=== PATIENT | male | born 1950 | race Caucasian/White ===

== ENCOUNTER → 2016-07-12 | Outpatient (CLI) | payer OTHER ==
[~2016-07-12] MED LIST: ASPI81TA28 PO; CHOL100010 PO; CHOL100027 PO; DIFL0.0519; ERTA1INJ IV; INSTAFLEX PO; MULT-506 PO; OFLO0.3S OP; ROSU5TAB PO; ZOLP10TA PO
[2016-07-12 12:24] LABS: BASO % 1.2 %; BASO ABS # 0.08 K/uL (0-0.2); COMPLETE YES; EOS % 1.5 %; HEMATOCRIT 48.4 % (42-52); IG% 0.1 %; LYMPH % 32.7 %; LYMPH ABS # 2.18 K/uL (1.2-3.4); MEAN CELL VOLUME 89.1 fL (80-100); MEAN CORPUSCULAR HGB CONC 33.7 g/dl (32-36); MEAN PLATELET VOLUME 11.8 fL (7.4-10.4); MONO % 6.9 %; NEUT % 57.6 %; PLATELET COUNT 246 K/uL (130-400); RED BLOOD COUNT 5.43 M/uL (4.7-6.1); WHITE BLOOD COUNT 6.67 K/uL (4.8-10.8)
[2016-07-12 12:45] LABS: ALT/SGPT 28 U/L (12-78); AST/SGOT 11 U/L (15-37); BLOOD UREA NITROGEN 14 mg/dl (7-18); BUN/CREATININE RATIO 17.8 (10-20); CARBON DIOXIDE 29 mmol/L (21-32); CHLORIDE 104 mmol/L (98-107); CREATININE 0.81 mg/dl (0.60-1.40); GLUCOSE 103 mg/dl (70-99); POTASSIUM 4.4 mmol/L (3.5-5.1); SODIUM 141 mmol/L (136-145)
[2016-07-12 12:56] LABS: ALB/GLOB RATIO 1.1 (0.9-2); ALKALINE PHOSPHATASE 53 U/L (45-117); CHOLESTEROL 177 mg/dl (0-200); CHOLESTEROL/HDL RATIO 3.8; HDL CHOLESTEROL 46 mg/dl; LDL CHOLESTEROL CALCULATED 110 mg/dl; THYROID STIMULATING HORMONE 0.792 uIu/ml (0.300-4.500); TRIGLYCERIDES 105 mg/dl (0-150); VERY LOW DENSITY LIPOPROT CALC 21 mg/dl
[2016-07-12 13:08] LABS: ESTIMATED AVERAGE GLUCOSE 111 mg/dl; HA1C FLAG Normal (Normal)
== END | disposition home or self-care (01) ==
LOC: C.LABBFT 11:05
PROVIDERS: ATTEND Internal Medicine
DX: Z00.00 Encounter for general adult medical examination without abnormal findings (principal); E78.5 Hyperlipidemia, unspecified; M54.5 Low back pain; R53.83 Other fatigue; G62.9 Polyneuropathy, unspecified; R73.01 Impaired fasting glucose

== ENCOUNTER → 2016-11-06 | Outpatient (CLI) | payer OTHER ==
[2016-11-06 13:22] LABS: ALT/SGPT 32 U/L (12-78); AST/SGOT 22 U/L (15-37); BLOOD UREA NITROGEN 16 mg/dl (7-18); BUN/CREATININE RATIO 17.5 (10-20); CALCIUM 9.2 mg/dl (8.5-10.1); CARBON DIOXIDE 29 mmol/L (21-32); CHLORIDE 106 mmol/L (98-107); CREATININE 0.91 mg/dl (0.60-1.40); GLUCOSE 100 mg/dl (70-99); POTASSIUM 4.9 mmol/L (3.5-5.1); SODIUM 141 mmol/L (136-145)
[2016-11-06 13:27] LABS: ALB/GLOB RATIO 1.2 (0.9-2); ALKALINE PHOSPHATASE 53 U/L (45-117); CHOLESTEROL 166 mg/dl (0-200); HDL CHOLESTEROL 41 mg/dl; LDL CHOLESTEROL CALCULATED 109 mg/dl; TRIGLYCERIDES 79 mg/dl (0-150); VERY LOW DENSITY LIPOPROT CALC 16 mg/dl
== END | disposition home or self-care (01) ==
LOC: C.LABBFT 10:02
PROVIDERS: ATTEND Internal Medicine
DX: Z00.00 Encounter for general adult medical examination without abnormal findings (principal); E78.5 Hyperlipidemia, unspecified; Z12.5 Encounter for screening for malignant neoplasm of prostate

== ENCOUNTER → 2016-12-05 | Outpatient (CLI) | payer OTHER | END | disposition home or self-care (01) | LOC: C.LABBFT 12:14 | PROVIDERS: ATTEND Internal Medicine | DX: R97.20 Elevated prostate specific antigen [PSA] (principal) ==

== ENCOUNTER → 2016-12-11 | Outpatient (CLI) | payer OTHER ==
[2016-12-11 12:38] LABS: URINE APPEARANCE CLEAR (CLEAR); URINE BILIRUBIN NEG (NEG); URINE COLOR YELLOW; URINE EPITHELIAL CELL AUTO 0-5 /lpf (0-5); URINE NITRITE NEG (NEG); URINE PH 6.5 (4.5-7.5); URINE SPECIFIC GRAVITY 1.011 (1.000-1.030); UROBILINOGEN NEG (NEG)
[2016-12-11 12:42] LABS: MANUAL MICROSCOPIC REQUIRED? NO; REVIEW REQ? NO
== END ==
LOC: C.LABBFT 08:11
PROVIDERS: ATTEND Internal Medicine
DX: R30.0 Dysuria (principal)

== ENCOUNTER → 2017-02-17 | Outpatient (CLI) | payer OTHER ==
[2017-02-17 20:17] LABS: LYME DISEASE AB IGG NEG (NEG); LYME DISEASE AB IGM NEG (NEG)
== END | disposition home or self-care (01) ==
LOC: C.LABBFT 12:09
PROVIDERS: ATTEND Internal Medicine
DX: T14.8 Other injury of unspecified body region (principal); W57.XXXA Bitten or stung by nonvenomous insect and other nonvenomous arthropods, initial encounter

== ENCOUNTER → 2017-03-17 | Outpatient (CLI) | payer OTHER ==
--- NOTE | 2017-03-28 07:24 | CODING QUERY MEDICAL NECESSITY ---
SUPPORTING DIAGNOSIS NEEDED A supporting diagnosis is required for the test/procedure performed on this patient in order for us to be reimbursed by the patient's insurance. Please provide a supporting diagnosis for the following test/procedure listed below next to the test name along with your signature. *If there is no additional diagnosis for this patient that would support the following test/procedure please document that below next to the test/procedure. Test(s)/Procedure(s) that require a supporting diagnosis: * PSA DIAGNOSIS: Provider Signature: Date: Thank you Dominique [employer] Information Management Once completed, please kindly fax back to [phone] For questions please call [phone]
== END | disposition home or self-care (01) ==
LOC: C.LABBFT 15:31
PROVIDERS: ATTEND Urology
DX: N41.1 Chronic prostatitis (principal)

== ENCOUNTER → 2017-03-19 | Outpatient (CLI) | payer OTHER | END | disposition home or self-care (01) | LOC: C.LABSPEC 17:34 | PROVIDERS: ATTEND Urology | DX: N41.0 Acute prostatitis (principal) ==

== ENCOUNTER 2017-03-20 21:17 | Inpatient (IN) | payer OTHER ==
[~2017-03-20] VITALS: Ht 175.3 cm; Wt 102.8 kg
[~2017-03-20 21:17] MED LIST changes: -ASPI81TA28 PO; -CHOL100027 PO; -ERTA1INJ IV; -INSTAFLEX PO; -OPTIRAY 320 IV PRN; -ROSU5TAB PO; -ZOLP10TA PO
[2017-03-20] MEDS ORDERED: SODIUM CHLORIDE 0.9% 1000ML 1,000 ML IV STA (21:50)
[2017-03-20] MEDS ORDERED: SODIUM CHLORIDE 0.9% 500ML 500 ML IV STA (21:50)
[2017-03-20] MEDS ORDERED: PIPERACILLIN/TAZOBACTAM 4.5 GM/100ML D5W IV STA (22:23)
[2017-03-20] MEDS ORDERED: SODIUM CHLORIDE 0.9% IV STA (22:24)
[2017-03-20] MEDS ORDERED: DAPTOMYCIN IV STA (22:24)
--- NOTE | 2017-03-20 22:25 | EMERGENCY ROOM VISIT NOTE ---
ED Visit Note First contact with patient: 21:34 I have seen and examined this patient with Merlene Chandler and generally agree with the treatment plan as discussed.
[2017-03-20 22:44] LABS: BASO % 0.6 %; BASO ABS # 0.06 K/uL (0-0.2); COMPLETE YES; EOS % 1.8 %; HEMATOCRIT 49.4 % (42-52); IG% 0.1 %; LYMPH % 7.3 %; LYMPH ABS # 0.69 K/uL (1.2-3.4); MEAN CELL VOLUME 88.5 fL (80-100); MEAN CORPUSCULAR HEMOGLOBIN 29.2 pg (25-34); MEAN PLATELET VOLUME 11.6 fL (7.4-10.4); MONO % 7.3 %; NEUT % 82.9 %; PLATELET COUNT 214 K/uL (130-400); RED BLOOD COUNT 5.58 M/uL (4.7-6.1)
[2017-03-20] MEDS ORDERED: ACETAMINOPHEN 500 MG TAB PO STA (22:49)
[2017-03-20 22:54] LABS: INR 0.9 (0.9-1.1); PARTIAL THROMBOPLASTIN RATIO 1.1; PROTHROMBIN TIME (PATIENT) 10.1 SECONDS (9.0-12.0)
[2017-03-20 23:25] LABS: URINE APPEARANCE CLEAR (CLEAR); URINE BILIRUBIN NEG (NEG); URINE COLOR YELLOW; URINE EPITHELIAL CELL AUTO 0-5 /lpf (0-5); URINE NITRITE NEG (NEG); URINE PH 5.5 (4.5-7.5); URINE SPECIFIC GRAVITY 1.027 (1.000-1.030); UROBILINOGEN NEG (NEG); ZZUR CULT IF INDIC CLEAN CATCH NO
[2017-03-20 23:26] LABS: ALB/GLOB RATIO 1.1 (0.9-2); ALKALINE PHOSPHATASE 61 U/L (45-117); ALT/SGPT 33 U/L (12-78); BLOOD UREA NITROGEN 16 mg/dl (7-18); BUN/CREATININE RATIO 17.4 (10-20); CARBON DIOXIDE 23 mmol/L (21-32); CHLORIDE 107 mmol/L (98-107); CREATININE 0.89 mg/dl (0.60-1.40); GLUCOSE 138 mg/dl (70-99)
[2017-03-20 23:27] LABS: MANUAL MICROSCOPIC REQUIRED? NO; REVIEW REQ? NO
[2017-03-21] VITALS (8 sets, daily range): BP systolic 114–145; BP diastolic 68–85; PULSE 74–88; TEMP 36.9–37.9; O2SAT 93–96; Ht 175.3 cm; Wt 102.8 kg
[2017-03-21 00:09] LABS: POTASSIUM 4.2 mmol/L (3.5-5.1); SODIUM 141 mmol/L (136-145)
[2017-03-21 00:30] LABS: AST/SGOT 17 U/L (15-37); CKMB/CK RATIO 0.8 (0-3.0)
[2017-03-21] MEDS ORDERED: ALUMINUM/MAGNESIUM/SIMETH (MAALOX MAX) 30 ML UDC PO PRN (00:45)
[2017-03-21] MEDS ORDERED: MAGNESIUM HYDROXIDE SUSP 30 ML UDC PO PRN (00:45)
[2017-03-21] MEDS ORDERED: ZOLPIDEM TARTRATE 5 MG TAB PO PRN (00:45)
[2017-03-21] MEDS ORDERED: ACETAMINOPHEN 325 MG TAB PO PRN (00:45)
[2017-03-21] MEDS ORDERED: ONDANSETRON INJ 2 MG/ML 2 ML VIAL IV PRN (00:45)
[2017-03-21] MEDS ORDERED: POLYETHYLENE (MIRALAX) 17 GM PACK PO PRN (00:45)
--- NOTE | 2017-03-21 00:56 | EMERGENCY ROOM VISIT NOTE ---
History First contact with patient: 21:34 Chief Complaint: ALLERGIC REACTION Stated Complaint: SHAKING,SOB,HIGH PULSE RATE,ALLERGIC REACTION Nursing Triage Summary: pt ambulatory to triage, states "I was in the tub i started shaking and feeling like i was going to throw up. I had a hard time getting out of the tub, i went into the bathroom and had a fit I felt like I couldn't breathe." pt reports he is currently taking for prostitis and had CT with dye 8am this morning. trimethoprim 100mg History of Present Illness The patient is a 67 year old male who presents to the Emergency Room with complaints of ongoing problems with this prostatitis for the past several months and has been on multiple antibiotics that have been on and off in duration secondary to side effects. Patient follows with Dr. Frias. Patient had a CT scan this morning and has been on Trimethoprim 100mg BID since yesterday. Patient has been on doxycycline in the past and had allergic reaction to Cipro with tendinitis. Patient had multiple rectal exams by Dr. Frias and states they have removed copious amounts of pus and fluid from his prostate. Patient still complain of ongoing rectal discomfort. Patient states around 7 PM tonight he had an episode of racing heart, right ears, chest pain, shortness of breath and then took a shower and then was freezing this lasted for quite some time. Patient states currently now he just feels feverish. Patient denies current chest pain, dyspnea, abdominal pain, neck stiffness. She states he's had bad reactions to antibiotics in the past with resistance. Patient complains of intermittent fevers for the past few months also. Review of Systems See HPI for pertinent positives & negatives. A total of 10 systems reviewed and were otherwise negative. Past Medical/Surgical History Medical Problems: (1) Prostatitis Hyperlipidemia Social History Smoking Status: Never Smoker Drug Use: none Marital Status: Housing Status: lives with family Occupation Status: employed Current/Historical Medications Scheduled Aspirin (Aspirin Ec), 81 MG PO QPM Cholecalciferol (Vitamin D), 1,000 INTER.UNIT PO QAM Multivitamin (Multivitamin), 1 TAB PO QAM Ofloxacin (Oph) (Ocuflox Oph Soln), 1-2 DROPS OP BID Rosuvastatin Calcium (Crestor), 5 MG PO HS Physical Exam Vital Signs Date Time Temp Pulse Resp B/P (MAP) Pulse Ox O2 Delivery O2 Flow Rate FiO2 03/20/17 23:59 85 18 191/103 96 Room Air 03/20/17 22:59 87 20 152/78 95 Room Air 03/20/17 22:08 94 Room Air 03/20/17 21:45 95 Room Air 03/20/17 21:27 37.6 106 18 178/83 95 Room Air Physical Exam VITALS: Vitals are noted on the nurse's note and reviewed by myself. Vital signs low-grade fever. GENERAL: White male, in no acute distress, nondiaphoretic, well-developed well- nourished. SKIN: The skin was without rashes, erythema, edema, or bruising. There is no tenting of the skin. Capillary reflex less than 2 seconds. HEAD: Normocephalic atraumatic. EARS: External auditory canals clear, tympanic membranes pearly henson without erythema or effusion bilaterally. EYES: Pupils equal round and reactive to light and accommodation. Conjunctivae without injection, sclerae without icterus. Extraocular movements intact. NOSE: Patent, turbinates without inflammation or discharge. MOUTH: Mucous membranes moist. Pharynx without erythema or exudate. Uvula midline. Airway patent. Tongue does not deviate. NECK: Supple without nuchal rigidity. No lymphadenopathy. No thyromegaly. Cervical spine is nontender. No JVD. HEART: Regular rate and rhythm LUNGS: Clear to auscultation bilaterally without wheezes, rales or rhonchi. No dullness to percussion. No retractions or accessory muscle use. ABDOMEN: Positive bowel sounds x 4. Normal tympanic percussion. Soft, nontender, without masses or organomegaly. Stephens sign negative. No guarding or rebound tenderness. No CVA tenderness MUSCULOSKELETAL: No muscle atrophy, erythema, or edema noted. NEURO: Patient was alert and oriented to person place and time. Normal sensation to light and sharp touch. No focal neurological deficits. Medical Decision & Procedures Laboratory Results 03/20/17 22:11 Red Blood Count 5.58, Mean Corpuscular Volume 88.5, Mean Corpuscular Hemoglobin 29.2, Mean Corpuscular Hemoglobin Concent 33.0, Mean Platelet Volume 11.6, Neutrophils (%) (Auto) 82.9, Lymphocytes (%) (Auto) 7.3, Monocytes (%) (Auto) 7.3, Eosinophils (%) (Auto) 1.8, Basophils (%) (Auto) 0.6, Neutrophils # (Auto) 7.88, Lymphocytes # (Auto) 0.69, Monocytes # (Auto) 0.69, Eosinophils # (Auto) 0.17, Basophils # (Auto) 0.06 03/20/17 22:11 Test 03/20/17 22:11 03/20/17 22:28 03/20/17 23:00 White Blood Count 9.50 K/uL (4.8-10.8) Red Blood Count 5.58 M/uL (4.7-6.1) Hemoglobin 16.3 g/dL (14.0-18.0) Hematocrit 49.4 % (42-52) Mean Corpuscular Volume 88.5 fL (80-100) Mean Corpuscular Hemoglobin 29.2 pg (25-34) Mean Corpuscular Hemoglobin Concent 33.0 g/dl (32-36) Platelet Count 214 K/uL (130-400) Mean Platelet Volume 11.6 fL (7.4-10.4) Neutrophils (%) (Auto) 82.9 % Lymphocytes (%) (Auto) 7.3 % Monocytes (%) (Auto) 7.3 % Eosinophils (%) (Auto) 1.8 % Basophils (%) (Auto) 0.6 % Neutrophils # (Auto) 7.88 K/uL (1.4-6.5) Lymphocytes # (Auto) 0.69 K/uL (1.2-3.4) Monocytes # (Auto) 0.69 K/uL (0.11-0.59) Eosinophils # (Auto) 0.17 K/uL (0-0.5) Basophils # (Auto) 0.06 K/uL (0-0.2) RDW Standard Deviation 42.4 fL (36.4-46.3) RDW Coefficient of Variation 13.0 % (11.5-14.5) Immature Granulocyte % (Auto) 0.1 % Immature Granulocyte # (Auto) 0.01 K/uL (0.00-0.02) Prothrombin Time 10.1 SECONDS (9.0-12.0) Prothromb Time International Ratio 0.9 (0.9-1.1) Activated Partial Thromboplast Time 28.6 SECONDS (21.0-31.0) Partial Thromboplastin Ratio 1.1 Anion Gap 9.0 mmol/L (3-11) Est Creatinine Clear Calc Drug Dose 97.8 ml/min Estimated GFR () 104.0 Estimated GFR (Non- 89.7 BUN/Creatinine Ratio 17.4 (10-20) Calcium Level 9.0 mg/dl (8.5-10.1) Total Bilirubin 0.3 mg/dl (0.2-1) Aspartate Amino Transf (AST/SGOT) 17 U/L (15-37) Alanine Aminotransferase (ALT/SGPT) 33 U/L (12-78) Alkaline Phosphatase 61 U/L (45-117) Total Creatine Kinase 113 U/L (39-308) Creatine Kinase MB 0.9 ng/ml (0.5-3.6) Creatine Kinase MB Ratio 0.8 (0-3.0) Troponin I < 0.015 ng/ml (0-0.045) Total Protein 7.2 gm/dl (6.4-8.2) Albumin 3.7 gm/dl (3.4-5.0) Globulin 3.5 gm/dl (2.5-4.0) Albumin/Globulin Ratio 1.1 (0.9-2) Procalcitonin 0.06 ng/ml (0-0.5) Chemistry Specimen Hemolysis Bedside Lactic Acid Venous 1.70 mmol/L (0.90-1.70) Urine Color YELLOW Urine Appearance CLEAR (CLEAR) Urine pH 5.5 (4.5-7.5) Urine Specific [place] 1.027 (1.000-1.030) Urine Protein NEG (NEG) Urine Glucose (UA) NEG (NEG) Urine Ketones NEG (NEG) Urine Occult Blood 1+ (NEG) Urine Nitrite NEG (NEG) Urine Bilirubin NEG (NEG) Urine Urobilinogen NEG (NEG) Urine Leukocyte Esterase NEG (NEG) Urine WBC (Auto) 1-5 /hpf (0-5) Urine RBC (Auto) 0-4 /hpf (0-4) Urine Hyaline Casts (Auto) 0 /lpf (0-5) Urine Epithelial Cells (Auto) 0-5 /lpf (0-5) Urine Bacteria (Auto) NEG (NEG) Medications Administered Medications (Trade) Dose Ordered Sig/Mary Lou Route Start Time Stop Time Status Last Admin Dose Admin Sodium Chloride 500 ml @ 999 mls/hr Q31M STAT IV 03/20/17 21:50 03/20/17 22:20 DC 03/20/17 22:13 999 MLS/HR Sodium Chloride 1,000 ml @ 125 mls/hr Q8H STAT IV 03/20/17 21:50 03/21/17 05:49 03/20/17 22:59 125 MLS/HR Piperacillin Sod/ Tazobactam Sod (Zosyn Iv) 4.5 gm NOW STAT IV 03/20/17 22:23 03/20/17 22:24 DC 03/20/17 22:54 4.5 GM Daptomycin 620 mg/ Sodium Chloride 62.4 ml @ 100 mls/hr NOW STAT IV 03/20/17 22:24 03/20/17 23:01 DC 03/20/17 23:21 100 MLS/HR Acetaminophen (Tylenol Tab) 1,000 mg NOW STAT PO 03/20/17 22:49 03/20/17 22:50 DC 03/20/17 22:54 1,000 MG ED Course Prior records/ancillary studies reviewed. Triage Nursing notes reviewed. Additional history obtained from family The patient's history was concerning for possible side effects antibiotic versus ongoing prostatitis Differential diagnosis: Etiologies such as prostatitis, sepsis, UTI, pneumonia, metabolic, electrolyte abnormalities, cardiac sources, intracerebral event, toxicologic, neurologic, as well as others were entertained. Physical examination: As above. Pertinent findings were ongoing prostate issues. Vital signs reviewed and revealed low grade fever ER treatment provided: IV fluid resuscitation with Normal saline solution, 500 mL bolus. IV fluid hydration with Normal saline solution at 125 mL/hr. Blood and urine cultures Antibiotics: Zosyn, daptomycin No recent prostate cultures were in the chart review. On reassessment the patient vital signs improved. Diagnostics interpretation by me: ECG: Normal sinus, normal intervals, Q wave in lead 2 and 3, no acute ST-T wave changes, rate of 97. Impression normal sinus rhythm with Q waves in inferior leads interpreted by myself The labs revealed no leukocytosis on CBC. Chemistry panel revealed no worrisome electrolyte abnormality LFTs revealed. Cardiac enzymes were negative Serum Lactate measurement was 1.7. Blood and urine cultures are pending. Imaging studies: Chest xray revealed with no acute consolidation, pneumothorax or free air per my interpretation CT OF THE PELVIS WITH CONTRAST CLINICAL HISTORY: Prostatitis. Evaluate for prostate abscess. COMPARISON STUDY: No previous studies for comparison. TECHNIQUE: Axial images of the pelvis were obtained following intravenous injection of 93 cc of Optiray 320 IV. Sagittal and coronal reconstructions were viewed. FINDINGS: The prostate is moderately enlarged. The prostate is heterogeneous. However, there is no rim-enhancing prostatic fluid collection to suggest an abscess. There is left colon diverticulosis without evidence for acute diverticulitis within visualized portions of the colon. A 2.4 cm cyst within the lower pole of the right kidney is incidentally noted. There is a fat-containing right inguinal hernia. There are no suspicious osseous lesions. There is no pelvic lymphadenopathy. IMPRESSION: 1. Moderately enlarged heterogeneous prostate gland with no evidence for prostate abscess. 2. Colonic diverticulosis. 3. Fat-containing right inguinal hernia. Electronically signed by: Jordi Goldberg M.D. Consultation: A consultation was placed with Dr Guanako pina. The case was discussed and diagnostics were reviewed. The patient was evaluated in the ER for further treatment. Exam and history seem consistent with prostatitis. Patient is febrile and has been on chronic antibiotics. He was started on broad-spectrum antibiotics. Medicine was consulted. He had no leukocytosis. Negative lactic acid. Blood cultures are pending. Medical Decision as above Medication Reconcilliation Current Medication List: was personally reviewed by me Blood Pressure Screening Patient's blood pressure: Elevated blood pressure Blood pressure disposition: Elevated BP felt to be situational Impression Primary Impression: Prostatitis Additional Impression: Failure of outpatient treatment Departure Information Dispostion Being Evaluated By Hospitalist Condition FAIR Referrals Tammy Goldberg M.D. (PCP) Patient Instructions My [facility] Problem Qualifiers Primary Impression: Prostatitis Prostatitis type: unspecified Qualified Codes: N41.9 - Inflammatory disease of prostate, unspecified
[2017-03-21] MEDS ORDERED: HydrALAZINE HCL 20 MG/ML VIAL IV. PRN (01:00)
[2017-03-21] MEDS ORDERED: SODIUM CHLORIDE 0.9% 1000ML 1,000 ML IV ONE (01:00)
--- NOTE | 2017-03-21 01:20 | History and Physical ---
History & Physical Date & Time of Service: Mar 21, 2017 at 00:58 Chief Complaint: Shaking,Sob,High Pulse Rate,Allergic Reaction Primary Care Physician: Tammy Goldberg M.D. History of Present Illness Source: patient 67 y/o M Hx HPL, recurrent prostatitis. Pt had been treated with a 3 month course of Doxy without complete resolution and was prescribed Bactrim 3 days prior. He had taken approximately 3 doses. This evening he developed rigors, fever and tachycardia in addition to nausea and vomiting. He tried to ride this out with a hot shower but was shaking violently afterward. He also claims that during this episode his HR read as 145 on his Iwatch. On arrival to the hospital he exhibited a low-grade fever. The pt initially thought that his symptoms were due to a reaction to Bactrim rather than his chronic infection. He describes a similar reaction when receiving Bactrim several years ago. The pt had an abdominal CT earlier in the day and received contrast. The results were unremarkable and he denies any immediate reactions to the contrast. It is noted that his blood pressure is markedly elevated at the time of admission - this despite being afebrile and seemingly pain-free. He denies a history of HTN. Past Medical/Surgical History 1) HPL 2) Recurrent prostatitis Family History Father at age 38 from [place] Mother in 70s due to COPD Social History Does not smoke or drink - avid hiker - owns a [employer] Smoking Status: Never Smoker Drug Use: none Marital Status: Occupational Status: employed Immunizations History of Influenza Vaccine: Yes Influenza Vaccine Date: Mar 16, 2010 History of Tetanus Vaccine?: Yes Tetanus Immunization Date: Mar 16, 2010 History of Pneumococcal: Yes Pneumococcal Date: May 24, 2005 History of Hepatitis B Vaccine: Unknown Multi-Drug Resistant Organisms History of MDRO: No Allergies Coded Allergies: Sulfa Drugs (Verified Allergy, Unknown, GI UPSET, 03/20/17) Trimethoprim (Unverified Allergy, Unknown, SHAKES,RAPID HEART RATE, VOMITING, 03/20/17) Home Medications Scheduled Aspirin (Aspirin Ec), 81 MG PO QPM Cholecalciferol (Vitamin D), 1,000 INTER.UNIT PO QAM Multivitamin (Multivitamin), 1 TAB PO QAM Ofloxacin (Oph) (Ocuflox Oph Soln), 1-2 DROPS OP BID Rosuvastatin Calcium (Crestor), 5 MG PO HS Review of Systems Constitutional: No fever, No chills Eyes: No worsening of vision ENT: No hearing loss, No nasal symptoms Respiratory: No cough, No wheezing Cardiovascular: No chest pain, No orthopnea, No PND Abdomen: + nausea, + vomiting, No pain Musculoskeletal: No joint pain, No muscle pain Genitourinary - Male: No hematuria, No dysuria, No urinary frequency Neurologic: No memory loss, No paralysis, No weakness Psychiatric: No depression symptoms Endocrine: No fatigue Hematologic / Lymphatic: No abnormal bleeding/bruising Integumentary: No rash Allergic / Immunologic: No environmental allergies Physical Exam Vital Signs Date Time Temp Pulse Resp B/P (MAP) Pulse Ox O2 Delivery O2 Flow Rate FiO2 03/20/17 23:59 85 18 191/103 96 Room Air 03/20/17 22:59 87 20 152/78 95 Room Air 03/20/17 22:08 94 Room Air 03/20/17 21:45 95 Room Air 03/20/17 21:27 37.6 106 18 178/83 95 Room Air General Appearance: WD/WN, no apparent distress Head: normocephalic ENT: normal ENT inspection, pharynx normal Neck: supple, no JVD Respiratory/Chest: chest non-tender, lungs clear, normal breath sounds Cardiovascular: regular rate, rhythm, no edema, no gallop Abdomen/GI: normal bowel sounds, non tender, soft Back: normal inspection, no CVA tenderness, no muscle spasm, normal range of motion Extremities/Musculoskelatal: normal inspection, no calf tenderness, normal capillary refill Neurologic/Psych: raw stock drier tender II-XII nml as tested, no motor/sensory deficits, alert Skin: normal color, warm/dry, no rash Diagnostics Laboratory Results Results Past 24 Hours Test 03/20/17 22:11 03/20/17 22:28 03/20/17 23:00 Range/Units White Blood Count 9.50 4.8-10.8 K/uL Red Blood Count 5.58 4.7-6.1 M/uL Hemoglobin 16.3 14.0-18.0 g/dL Hematocrit 49.4 42-52 % Mean Corpuscular Volume 88.5 80-100 fL Mean Corpuscular Hemoglobin 29.2 25-34 pg Mean Corpuscular Hemoglobin Concent 33.0 32-36 g/dl Platelet Count 214 130-400 K/uL Mean Platelet Volume 11.6 7.4-10.4 fL Neutrophils (%) (Auto) 82.9 % Lymphocytes (%) (Auto) 7.3 % Monocytes (%) (Auto) 7.3 % Eosinophils (%) (Auto) 1.8 % Basophils (%) (Auto) 0.6 % Neutrophils # (Auto) 7.88 1.4-6.5 K/uL Lymphocytes # (Auto) 0.69 1.2-3.4 K/uL Monocytes # (Auto) 0.69 0.11-0.59 K/uL Eosinophils # (Auto) 0.17 0-0.5 K/uL Basophils # (Auto) 0.06 0-0.2 K/uL RDW Standard Deviation 42.4 36.4-46.3 fL RDW Coefficient of Variation 13.0 11.5-14.5 % Immature Granulocyte % (Auto) 0.1 % Immature Granulocyte # (Auto) 0.01 0.00-0.02 K/uL Prothrombin Time 10.1 9.0-12.0 SECONDS Prothromb Time International Ratio 0.9 0.9-1.1 Activated Partial Thromboplast Time 28.6 21.0-31.0 SECONDS Partial Thromboplastin Ratio 1.1 Sodium Level 141 136-145 mmol/L Potassium Level 4.2 3.5-5.1 mmol/L Chloride Level 107 98-107 mmol/L Carbon Dioxide Level 23 21-32 mmol/L Anion Gap 9.0 3-11 mmol/L Blood Urea Nitrogen 16 7-18 mg/dl Creatinine 0.89 0.60-1.40 mg/dl Est Creatinine Clear Calc Drug Dose 97.8 ml/min Estimated GFR () 104.0 Estimated GFR (Non- 89.7 BUN/Creatinine Ratio 17.4 10-20 Random Glucose 138 70-99 mg/dl Calcium Level 9.0 8.5-10.1 mg/dl Total Bilirubin 0.3 0.2-1 mg/dl Aspartate Amino Transf (AST/SGOT) 17 15-37 U/L Alanine Aminotransferase (ALT/SGPT) 33 12-78 U/L Alkaline Phosphatase 61 45-117 U/L Total Creatine Kinase 113 39-308 U/L Creatine Kinase MB 0.9 0.5-3.6 ng/ml Creatine Kinase MB Ratio 0.8 0-3.0 Troponin I < 0.015 0-0.045 ng/ml Total Protein 7.2 6.4-8.2 gm/dl Albumin 3.7 3.4-5.0 gm/dl Globulin 3.5 2.5-4.0 gm/dl Albumin/Globulin Ratio 1.1 0.9-2 Procalcitonin 0.06 0-0.5 ng/ml Chemistry Specimen Hemolysis Bedside Lactic Acid Venous 1.70 0.90-1.70 mmol/L Urine Color YELLOW Urine Appearance CLEAR CLEAR Urine pH 5.5 4.5-7.5 Urine Specific [place] 1.027 1.000-1.030 Urine Protein NEG NEG Urine Glucose (UA) NEG NEG Urine Ketones NEG NEG Urine Occult Blood 1+ NEG Urine Nitrite NEG NEG Urine Bilirubin NEG NEG Urine Urobilinogen NEG NEG Urine Leukocyte Esterase NEG NEG Urine WBC (Auto) 1-5 0-5 /hpf Urine RBC (Auto) 0-4 0-4 /hpf Urine Hyaline Casts (Auto) 0 0-5 /lpf Urine Epithelial Cells (Auto) 0-5 0-5 /lpf Urine Bacteria (Auto) NEG NEG Microbiology Results 03/20/17 Blood Culture, Received Pending 03/20/17 Blood Culture, Received Pending Impression Assessment and Plan 67 y/o M Hx HPL, recurrent prostatitis. Pt had been treated with a 3 month course of Doxy without complete resolution and was prescribed Bactrim 3 days prior. He had taken approximately 3 doses. This evening he developed rigors, fever and tachycardia in addition to nausea and vomiting. He tried to ride this out with a hot shower but was shaking violently afterward. He also claims that during this episode his HR read as 145 on his Iwatch. On arrival to the hospital he exhibited a low-grade fever. The pt initially thought that his symptoms were due to a reaction to Bactrim rather than his chronic infection. He describes a similar reaction when receiving Bactrim several years ago. The pt had an abdominal CT earlier in the day and received contrast. The results were unremarkable and he denies any immediate reactions to the contrast. It is noted that his blood pressure is markedly elevated at the time of admission - this despite being afebrile and seemingly pain-free. He denies a history of HTN. 1) Fever, rigors, N/V - this would more likely be due to infection - ongoing prostatitis - rather than a somewhat delayed reaction to Bactrim. It does however, per the pt, mimic a reaction he had had to Bactrim years earlier. He does not currrently have a rash, wheezing or evidence of allergic reaction. His nausea and vomiting have resolved. The pt will be placed on Zosyn pending culture results. We have consulted his Urologist. 2) HTN - denies a history of - will provide PRN Hydralazine -we will trend his BP and would consider outpt treatment if it remains persistently elevated. 3) HPL - cont Crestor Full code - Heparin prophylaxis - total time for this admit including review of labs, meds, records - discussion with pt and ER attending - 35 min Level of Care Med/Surg Resuscitation Status FULL RESUSCITATION VTE Prophylaxis VTE Risk Assessment Done? Y/N: Yes Risk Level: Low Given or contraindicated: Unfractionated heparin SQ
[2017-03-21] MEDS ORDERED: PIPERACILL/TAZOBAC CONSULT ACTIVE PRN (06:00)
[2017-03-21] MEDS ORDERED: PIPERACILL/TAZOBAC IV 3.375 GM in DEXTROSE 5% 100ML 100 ML IV SCH (06:00)
[2017-03-21] MEDS: HEPARIN SOD 5000 UNIT/0.5 ML CARP SQ SCH ×3 (06:26→20:56)
--- NOTE | 2017-03-21 06:51 | DIAGNOSTIC IMAGING REPORT ---
CHEST ONE VIEW PORTABLE CLINICAL HISTORY: Sepsis dyspnea COMPARISON STUDY: 05/24/2010 FINDINGS: The bones soft tissues and hemidiaphragms are normal. The cardiomediastinal silhouette is normal. The lungs are clear. The pulmonary vasculature is normal. IMPRESSION: Negative chest. The above report was generated using voice recognition software. It may contain grammatical, syntax or spelling errors. Electronically signed by: Frank Nicholas M.D. 03/21/2017 6:50 AM Dictated Date/Time: 03/21/2017 6:50 AM
[2017-03-21] MEDS: OFLOXACIN 0.3% OP SOLN 5 ML BTL OP SCH ×2 (09:00→20:54)
--- NOTE | 2017-03-21 10:00 | Urology Consultation ---
History General Date of Service: Mar 21, 2017. Primary Care Physician: Tammy Goldberg M.D. Pt seen a urologist before?: Yes (Dr. Frias) If yes, why?: Prostatitis History of Present Illness 67 year old male well known to our service. He has been followed by Dr. Frias for his prostatitis. Discussed case with Dr. Frias. He has been treated and failed treatment with courses of doxycycline and Ciprofloxacin. Prostate secretions evaluated by Dr. Frias showed TNTC WBCs indicating infection. CT scan was done to rule out prostate abscess- did not reveal any worrisome findings. He presented to the ER with complaints of fever, chills, and rigors. Pt stated he felt very sick. Stated that he had this reaction to sulfa drug many years ago. He was only on trimethoprim. Not Bactrim as previously stated. Upon admission did note low grade fever, tachycardia, and hypertensive. Pt is now afebrile with VSS. Had urine culture 2 days ago that shows no growth. Blood cultures are pending. Imaging Imaging: CT Laboratory Current Inpatient Medications Medications (Trade) Dose Ordered Sig/Mary Lou Route Start Time Stop Time Status Last Admin Dose Admin Piperacillin Sod/ Tazobactam Sod 3.375 gm/Dextrose 115 ml @ 28.75 mls/ hr Q8H IV 03/21/17 06:00 03/31/17 05:59 03/21/17 06:15 28.75 MLS/HR Heparin Sodium (Porcine) (Heparin Sq 5000 Unit/0.5ml) 5,000 unit Q8H SQ 03/21/17 06:00 04/20/17 05:59 03/21/17 06:26 5,000 UNIT Acetaminophen (Tylenol Tab) 650 mg Q4H PRN PO 03/21/17 00:45 04/20/17 00:44 Al Hydrox/Mg Hydrox/Simethicone (Maalox Max Susp) 15 ml Q4H PRN PO 03/21/17 00:45 04/20/17 00:44 Magnesium Hydroxide (Milk Of Magnesia Susp) 30 ml Q6H PRN PO 03/21/17 00:45 04/20/17 00:44 Polyethylene (Miralax Powder Packet) 17 gm DAILY PRN PO 03/21/17 00:45 04/20/17 00:44 Zolpidem Tartrate (Ambien Tab) 5 mg HSZ PRN PO 03/21/17 00:45 04/20/17 00:44 Ondansetron HCl (Zofran Inj) 4 mg Q6H PRN IV 03/21/17 00:45 04/20/17 00:44 Hydralazine HCl (HydrALAZINE INJ) 5 mg Q6H PRN IV. 03/21/17 01:00 04/20/17 00:59 Aspirin (Ecotrin Tab) 81 mg QPM PO 03/21/17 21:00 04/20/17 20:59 Ofloxacin (Ocuflox 0.3% Oph Soln) 2 drops BID OP 03/21/17 09:00 03/31/17 08:59 Rosuvastatin Calcium (Crestor Tab) 5 mg HS PO 03/21/17 21:00 04/20/17 20:59 Piperacillin Sod/ Tazobactam Sod (Consult) 1 ea UD PRN N/A 03/21/17 06:00 04/20/17 05:59 Last 24 Hours Test 03/20/17 22:11 03/20/17 22:28 03/20/17 23:00 White Blood Count 9.50 K/uL Red Blood Count 5.58 M/uL Hemoglobin 16.3 g/dL Hematocrit 49.4 % Mean Corpuscular Volume 88.5 fL Mean Corpuscular Hemoglobin 29.2 pg Mean Corpuscular Hemoglobin Concent 33.0 g/dl Platelet Count 214 K/uL Mean Platelet Volume 11.6 fL Neutrophils (%) (Auto) 82.9 % Lymphocytes (%) (Auto) 7.3 % Monocytes (%) (Auto) 7.3 % Eosinophils (%) (Auto) 1.8 % Basophils (%) (Auto) 0.6 % Neutrophils # (Auto) 7.88 K/uL Lymphocytes # (Auto) 0.69 K/uL Monocytes # (Auto) 0.69 K/uL Eosinophils # (Auto) 0.17 K/uL Basophils # (Auto) 0.06 K/uL RDW Standard Deviation 42.4 fL RDW Coefficient of Variation 13.0 % Immature Granulocyte % (Auto) 0.1 % Immature Granulocyte # (Auto) 0.01 K/uL Prothrombin Time 10.1 SECONDS Prothromb Time International Ratio 0.9 Activated Partial Thromboplast Time 28.6 SECONDS Partial Thromboplastin Ratio 1.1 Sodium Level 141 mmol/L Potassium Level 4.2 mmol/L Chloride Level 107 mmol/L Carbon Dioxide Level 23 mmol/L Anion Gap 9.0 mmol/L Blood Urea Nitrogen 16 mg/dl Creatinine 0.89 mg/dl Est Creatinine Clear Calc Drug Dose 97.8 ml/min Estimated GFR () 104.0 Estimated GFR (Non- 89.7 BUN/Creatinine Ratio 17.4 Random Glucose 138 mg/dl Calcium Level 9.0 mg/dl Total Bilirubin 0.3 mg/dl Aspartate Amino Transf (AST/SGOT) 17 U/L Alanine Aminotransferase (ALT/SGPT) 33 U/L Alkaline Phosphatase 61 U/L Total Creatine Kinase 113 U/L Creatine Kinase MB 0.9 ng/ml Creatine Kinase MB Ratio 0.8 Troponin I < 0.015 ng/ml Total Protein 7.2 gm/dl Albumin 3.7 gm/dl Globulin 3.5 gm/dl Albumin/Globulin Ratio 1.1 Procalcitonin 0.06 ng/ml Chemistry Specimen Hemolysis Bedside Lactic Acid Venous 1.70 mmol/L Urine Color YELLOW Urine Appearance CLEAR Urine pH 5.5 Urine Specific [place] 1.027 Urine Protein NEG Urine Glucose (UA) NEG Urine Ketones NEG Urine Occult Blood 1+ Urine Nitrite NEG Urine Bilirubin NEG Urine Urobilinogen NEG Urine Leukocyte Esterase NEG Urine WBC (Auto) 1-5 /hpf Urine RBC (Auto) 0-4 /hpf Urine Hyaline Casts (Auto) 0 /lpf Urine Epithelial Cells (Auto) 0-5 /lpf Urine Bacteria (Auto) NEG Labs were reviewed and are within normal limits unless listed below. Labs are available in the chart and at [facility] Problem List Medical Problems: (1) Failure of outpatient treatment Status: Acute Past History other (hyperlipidemia) Past Surgical History: no surgical history Social History Hx Tobacco Use In Past Year?: No Marital status: Occupation status: employed Immunizations History of Influenza Vaccine: Yes Influenza Vaccine Date: Mar 16, 2010 History of Tetanus Vaccine?: Yes Tetanus Immunization Date: Mar 16, 2010 History of Pneumococcal: Yes Pneumococcal Date: May 24, 2005 History of Hepatitis B Vaccine: Unknown History of MDRO No Allergies Coded Allergies: Sulfa Drugs (Verified Allergy, Unknown, GI UPSET, 03/20/17) Trimethoprim (Unverified Allergy, Unknown, SHAKES,RAPID HEART RATE, VOMITING, 03/20/17) Medications Home Medications: Home Meds and Scripts Medications Dose Route/Sig Max Daily Dose Days Date Category Aspirin Ec (Aspirin) 81 Mg Tab 81 Mg PO QPM 03/20/17 Reported Ocuflox Oph Soln (Ofloxacin (Oph)) 0.3 % Jose 1-2 Drops OP BID 7 01/10/16 Reported Vitamin D (Cholecalciferol) 1,000 Inter.unit Tab 1,000 Inter.unit PO QAM 12/28/15 Reported Multivitamin (Multivitamins) Tab 1 Tab PO QAM 12/28/15 Reported Crestor (Rosuvastatin Calcium) 5 Mg Tab 5 Mg PO HS 12/28/15 Reported Inpatient Medications: Current Inpatient Medications Medications (Trade) Dose Ordered Sig/Mary Lou Route Start Time Stop Time Status Last Admin Dose Admin Piperacillin Sod/ Tazobactam Sod 3.375 gm/Dextrose 115 ml @ 28.75 mls/ hr Q8H IV 03/21/17 06:00 03/31/17 05:59 03/21/17 06:15 28.75 MLS/HR Heparin Sodium (Porcine) (Heparin Sq 5000 Unit/0.5ml) 5,000 unit Q8H SQ 03/21/17 06:00 04/20/17 05:59 03/21/17 06:26 5,000 UNIT Acetaminophen (Tylenol Tab) 650 mg Q4H PRN PO 03/21/17 00:45 04/20/17 00:44 Al Hydrox/Mg Hydrox/Simethicone (Maalox Max Susp) 15 ml Q4H PRN PO 03/21/17 00:45 04/20/17 00:44 Magnesium Hydroxide (Milk Of Magnesia Susp) 30 ml Q6H PRN PO 03/21/17 00:45 04/20/17 00:44 Polyethylene (Miralax Powder Packet) 17 gm DAILY PRN PO 03/21/17 00:45 04/20/17 00:44 Zolpidem Tartrate (Ambien Tab) 5 mg HSZ PRN PO 03/21/17 00:45 04/20/17 00:44 Ondansetron HCl (Zofran Inj) 4 mg Q6H PRN IV 03/21/17 00:45 04/20/17 00:44 Hydralazine HCl (HydrALAZINE INJ) 5 mg Q6H PRN IV. 03/21/17 01:00 04/20/17 00:59 Aspirin (Ecotrin Tab) 81 mg QPM PO 03/21/17 21:00 04/20/17 20:59 Ofloxacin (Ocuflox 0.3% Oph Soln) 2 drops BID OP 03/21/17 09:00 03/31/17 08:59 Rosuvastatin Calcium (Crestor Tab) 5 mg HS PO 03/21/17 21:00 04/20/17 20:59 Piperacillin Sod/ Tazobactam Sod (Consult) 1 ea UD PRN N/A 03/21/17 06:00 04/20/17 05:59 Review of Systems Review of Systems Constitutional: + chills Eyes: No blurred vision Neurological: No dizzy Endocrine: + too hot, + too cold Gastrointestinal: + abdominal pain, + nausea Cardiovascular: No chest pain Respiratory: No shortness of breath Skin: No rash Blood / Lymphatic: No bleed easily Ears / Nose / Throat: No hearing loss Psychologic / Mental: No nervous Male : + see HPI Physical Exam Vital Signs: Vital Signs Past 12 Hours Date Time Temp Pulse Resp B/P (MAP) Pulse Ox O2 Delivery O2 Flow Rate FiO2 03/21/17 07:45 37.3 84 20 133/75 (94) 95 Room Air 03/21/17 01:34 37.1 81 14 114/69 (84) 94 Room Air 03/21/17 01:30 37.1 81 14 114/69 94 Room Air 03/21/17 01:30 Room Air 03/21/17 01:20 37.2 83 17 137/76 (96) 93 Room Air 03/21/17 01:08 37.1 80 18 164/93 95 03/20/17 23:59 85 18 191/103 96 Room Air 03/20/17 22:59 87 20 152/78 95 Room Air 03/20/17 22:08 94 Room Air 03/20/17 21:45 95 Room Air Physical Exam: General Appearance: WD/WN, no apparent distress ENT: hearing grossly normal Neck: no JVD Gastrointestinal: Abdomen: normal abdomen Extremities: normal inspection Neurologic/Psychiatric: alert, normal mood/affect, oriented x 3 Skin: normal color, warm/dry, no rash Assessment & Plan Assessment & Plan Prostatitis It is unclear if his current symptoms are due to reaction to trimethoprim. He has failed multiple antibiotic courses for prostatitis. Clinically with symptoms suggests a diagnosis of prostatitis. Prostatic abscess was ruled out on CT. Will consult infectious disease - rule out other source of infection, ? antibiotic reaction and possible alternative course of antibiotic if felt necessary. (Reviewed case with Dr. Lawson) Appreciate their input. Thanks for the consult. Will continue to follow along. Pt seen and case discussed with Chantel Urena . I agree with above plan and assessment
--- NOTE | 2017-03-21 10:21 | Hospitalist Progress Note ---
Hospitalist Progress Note Date of Service Mar 21, 2017. (Tiara Brumfield ., ALANA) Subjective Pt evaluation today including: conversation w/ patient, conversation w/ family ( at bedside), physical exam, lab review, review of studies, review of inpatient medication list Patient feeling well. Eating and drinking OK. Believes his symptoms yesterday were related to an allergic reaction to Bactrim - ID has been consulted. Patient denies any fever, chills, sweats, lightheadedness, dizziness, vision changes, CP, palpitations, edema, SOB, wheezing, cough, abdominal pain, nausea, vomiting, diarrhea, urinary symptoms, melena, numbness/tingling, weakness, muscle/joint pain, anxiety/depression, active bleeding, or new skin discoloration/changes. (Tiara Brumfield ., GENC) Medications Current Inpatient Medications Medications (Trade) Dose Ordered Sig/Mary Lou Route Start Time Stop Time Status Last Admin Dose Admin Piperacillin Sod/ Tazobactam Sod 3.375 gm/Dextrose 115 ml @ 28.75 mls/ hr Q8H IV 03/21/17 06:00 03/31/17 05:59 03/21/17 06:15 28.75 MLS/HR Heparin Sodium (Porcine) (Heparin Sq 5000 Unit/0.5ml) 5,000 unit Q8H SQ 03/21/17 06:00 04/20/17 05:59 03/21/17 06:26 5,000 UNIT Acetaminophen (Tylenol Tab) 650 mg Q4H PRN PO 03/21/17 00:45 04/20/17 00:44 Al Hydrox/Mg Hydrox/Simethicone (Maalox Max Susp) 15 ml Q4H PRN PO 03/21/17 00:45 04/20/17 00:44 Magnesium Hydroxide (Milk Of Magnesia Susp) 30 ml Q6H PRN PO 03/21/17 00:45 04/20/17 00:44 Polyethylene (Miralax Powder Packet) 17 gm DAILY PRN PO 03/21/17 00:45 04/20/17 00:44 Zolpidem Tartrate (Ambien Tab) 5 mg HSZ PRN PO 03/21/17 00:45 04/20/17 00:44 Ondansetron HCl (Zofran Inj) 4 mg Q6H PRN IV 03/21/17 00:45 04/20/17 00:44 Hydralazine HCl (HydrALAZINE INJ) 5 mg Q6H PRN IV. 03/21/17 01:00 04/20/17 00:59 Aspirin (Ecotrin Tab) 81 mg QPM PO 03/21/17 21:00 04/20/17 20:59 Ofloxacin (Ocuflox 0.3% Oph Soln) 2 drops BID OP 03/21/17 09:00 03/31/17 08:59 Rosuvastatin Calcium (Crestor Tab) 5 mg HS PO 03/21/17 21:00 04/20/17 20:59 Piperacillin Sod/ Tazobactam Sod (Consult) 1 ea UD PRN N/A 03/21/17 06:00 04/20/17 05:59 (Tiara Brumfield, PA-C) Objective Vital Signs Date Time Temp Pulse Resp B/P (MAP) Pulse Ox O2 Delivery O2 Flow Rate FiO2 03/21/17 07:45 37.3 84 20 133/75 (94) 95 Room Air 03/21/17 01:34 37.1 81 14 114/69 (84) 94 Room Air 03/21/17 01:30 37.1 81 14 114/69 94 Room Air 03/21/17 01:30 Room Air 03/21/17 01:20 37.2 83 17 137/76 (96) 93 Room Air 03/21/17 01:08 37.1 80 18 164/93 95 03/20/17 23:59 85 18 191/103 96 Room Air 03/20/17 22:59 87 20 152/78 95 Room Air 03/20/17 22:08 94 Room Air 03/20/17 21:45 95 Room Air 03/20/17 21:27 37.6 106 18 178/83 95 Room Air (Tiara Brumfield, PA-C) Physical Exam General Appearance: no apparent distress, + obese Eyes: normal inspection, PERRL ENT: hearing grossly normal Neck: supple Respiratory/Chest: lungs clear, no respiratory distress, no accessory muscle use Cardiovascular: regular rate, rhythm Abdomen: normal bowel sounds, non tender, soft Extremities: no pedal edema, no calf tenderness Neurologic/Psychiatric: alert, normal mood/affect, oriented x 3 Skin: normal color, warm/dry, no rash (Tiara Brumfield, ALANA) Laboratory Results Last 24 Hours Test 03/20/17 22:11 03/20/17 22:28 03/20/17 23:00 White Blood Count 9.50 K/uL Red Blood Count 5.58 M/uL Hemoglobin 16.3 g/dL Hematocrit 49.4 % Mean Corpuscular Volume 88.5 fL Mean Corpuscular Hemoglobin 29.2 pg Mean Corpuscular Hemoglobin Concent 33.0 g/dl Platelet Count 214 K/uL Mean Platelet Volume 11.6 fL Neutrophils (%) (Auto) 82.9 % Lymphocytes (%) (Auto) 7.3 % Monocytes (%) (Auto) 7.3 % Eosinophils (%) (Auto) 1.8 % Basophils (%) (Auto) 0.6 % Neutrophils # (Auto) 7.88 K/uL Lymphocytes # (Auto) 0.69 K/uL Monocytes # (Auto) 0.69 K/uL Eosinophils # (Auto) 0.17 K/uL Basophils # (Auto) 0.06 K/uL RDW Standard Deviation 42.4 fL RDW Coefficient of Variation 13.0 % Immature Granulocyte % (Auto) 0.1 % Immature Granulocyte # (Auto) 0.01 K/uL Prothrombin Time 10.1 SECONDS Prothromb Time International Ratio 0.9 Activated Partial Thromboplast Time 28.6 SECONDS Partial Thromboplastin Ratio 1.1 Sodium Level 141 mmol/L Potassium Level 4.2 mmol/L Chloride Level 107 mmol/L Carbon Dioxide Level 23 mmol/L Anion Gap 9.0 mmol/L Blood Urea Nitrogen 16 mg/dl Creatinine 0.89 mg/dl Est Creatinine Clear Calc Drug Dose 97.8 ml/min Estimated GFR () 104.0 Estimated GFR (Non- 89.7 BUN/Creatinine Ratio 17.4 Random Glucose 138 mg/dl Calcium Level 9.0 mg/dl Total Bilirubin 0.3 mg/dl Aspartate Amino Transf (AST/SGOT) 17 U/L Alanine Aminotransferase (ALT/SGPT) 33 U/L Alkaline Phosphatase 61 U/L Total Creatine Kinase 113 U/L Creatine Kinase MB 0.9 ng/ml Creatine Kinase MB Ratio 0.8 Troponin I < 0.015 ng/ml Total Protein 7.2 gm/dl Albumin 3.7 gm/dl Globulin 3.5 gm/dl Albumin/Globulin Ratio 1.1 Procalcitonin 0.06 ng/ml Chemistry Specimen Hemolysis Bedside Lactic Acid Venous 1.70 mmol/L Urine Color YELLOW Urine Appearance CLEAR Urine pH 5.5 Urine Specific [place] 1.027 Urine Protein NEG Urine Glucose (UA) NEG Urine Ketones NEG Urine Occult Blood 1+ Urine Nitrite NEG Urine Bilirubin NEG Urine Urobilinogen NEG Urine Leukocyte Esterase NEG Urine WBC (Auto) 1-5 /hpf Urine RBC (Auto) 0-4 /hpf Urine Hyaline Casts (Auto) 0 /lpf Urine Epithelial Cells (Auto) 0-5 /lpf Urine Bacteria (Auto) NEG (Tiara Brumfield, ALANA) Assessment and Plan 67 y/o M Hx HPL, recurrent prostatitis. Pt had been treated with a 3 month course of Doxy without complete resolution and was prescribed Bactrim 3 days prior. He had taken approximately 3 doses. This evening he developed rigors, fever and tachycardia in addition to nausea and vomiting. He tried to ride this out with a hot shower but was shaking violently afterward. He also claims that during this episode his HR read as 145 on his Iwatch. On arrival to the hospital he exhibited a low-grade fever. The pt initially thought that his symptoms were due to a reaction to Bactrim rather than his chronic infection. He describes a similar reaction when receiving Bactrim several years ago. The pt had an abdominal CT earlier in the day and received contrast. The results were unremarkable and he denies any immediate reactions to the contrast. It is noted that his blood pressure is markedly elevated at the time of admission - this despite being afebrile and seemingly pain-free. He denies a history of HTN. Fever, rigors, N/V, ?secondary to infection from ongoing prostatitis w/ multiple failed antibiotics vs Bactrim reaction: - Admitted to med/surg - IV Zosyn pending BCx--> transitioned to IV Ertapenem per ID - Urology consulted, appreciate recommendations- follows w/ Dr. Frias -- UA negative 2 days ago -- Prostatic abscess ruled out on CT - Infectious disease consulted, appreciate recommendations -- Transitioned to Ertapenem due to ease of use vs Zosyn if patient needs IV antibiotics -- Suggest either oral cephalosporin such as Omnicef vs continue IV abx via picc line -- x3 weeks of treatment HTN- RESOLVED: IV Hydralazine PRN HPL: Crestor 5 mg HS DVT prophylaxis: Heparin SQ TID Code Status: LEVEL I, FULL Dispo: From home, lives w/ -- Monitor response to IV Ertapenem, follow BCx- may need PICC at discharge- psychiatric social worker consulted (Tiara Brumfield, PA-C) I examined patient after reviewing note and discussing with APC. General Appearance: no apparent distress, + obese Eyes: normal inspection, PERRL ENT: hearing grossly normal Neck: supple Respiratory/Chest: lungs clear, no respiratory distress, no accessory muscle use Cardiovascular: regular rate, rhythm Abdomen: normal bowel sounds, non tender, soft Extremities: no pedal edema, no calf tenderness Neurologic/Psychiatric: alert, normal mood/affect, oriented x 3 Skin: normal color, warm/dry, no rash Agree with A/P. (Arturo Alejandre M.D.)
--- NOTE | 2017-03-21 11:06 | Progress Note ---
Progress Note Date of Service Mar 21, 2017. Progress Note ID Consult Dictated #[id number] A/P: 1. Prostatitis 2. Drug reaction -Clinically improving, doubt current symptoms due to infection -Micro negative, no clear direction for abx. Has had reaction to bactrim, doxy, cipro -did discuss po vs IV abx moving forward, all culture negative, ct negative for abscess -Suggest either oral cephalosporin such as omnicef vs continue IV abx via picc line -will transition to ertapenem as this is once daily and would be easier at home than zosyn -would give 3 weeks, could use with omnicef or ertapenem depending on pt preference for po vs IV -thank you
--- NOTE | 2017-03-21 11:47 | INFECT. DISEASE CONSULTATION ---
DATE OF CONSULTATION: 03/21/2017 REQUESTING PHYSICIAN: Dr. Frias. HISTORY OF PRESENT ILLNESS: This is a 67-year-old gentleman who was admitted to the hospital after he had a reaction to trimethoprim. He does have a history of prostatitis. He states this began some months ago. He initially received a course of Cipro from his primary care physician for 7 days, which he felt had helped; however, he had taken this multiple times with short courses and then developed pain in his ankles, which he felt was due to tendonitis and his Cipro was discontinued. He then followed up with urology and was placed on a prolonged course of doxycycline. He tolerated this well, but states he had significant sensitivity reaction to this. He then was changed to trimethoprim. He does carry a history of SULFA ALLERGY many years ago and he was given trimethoprim only. He took 3 pills of this and he had an episode of violent shaking and tachycardia. He also had subjective low-grade fevers. He does not know if this was due to anxiety or reaction to trimethoprim, but in any event, he did present to the Emergency Room and subsequently was admitted. He was started empirically on Zosyn and given a 1-time dose of daptomycin. He is tolerating these antibiotics well. He did have a T-max yesterday of 37.6, but has otherwise been afebrile. His white blood cell count was normal. A urinalysis was unremarkable. His chest x-ray is unremarkable as well. He does have a history of prostatitis. There is a urine culture dated December 11, which had 9000-gram negative rods and no additional workup was done at that time. His urine culture from this admission is negative. He did have a CAT scan of the pelvis done yesterday, which showed heterogeneous prostate gland with no evidence of abscess. He states he has had an elevated PSA, but has not undergone any prostate biopsy due to the concern for spread of infection. He does not have a history of prostate cancer in his family. He did recently have a prostate massage, which reportedly had significant white blood cells and do not know if a culture was done as an outpatient at that time. Currently, he states he is feeling significantly better. He denies any fevers or chills. He has no shakes. He has no chest pain, cough, shortness of breath, nausea, vomiting or diarrhea. All remaining review of systems is reviewed and unremarkable. PAST MEDICAL HISTORY: Significant for hyperlipidemia and prostatitis. PAST SURGICAL HISTORY: Unremarkable. FAMILY HISTORY: Noncontributory. SOCIAL HISTORY: Negative for tobacco use, alcohol use or drug use. He is . His is present during my examination. 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 ALLERGIES: HE DOES HAVE ALLERGIES TO BACTRIM. CURRENT MEDICATIONS: Include aspirin, Crestor, Zosyn, subQ heparin, hydralazine, Tylenol, Maalox, milk of magnesia, MiraLax, Ambien, and Zofran. PHYSICAL EXAMINATION: VITAL SIGNS: He is afebrile, pulse 84, respiratory rate is 20, blood pressure is 133/75, and oxygen saturation 95% on room air. GENERAL: He is awake, alert and oriented x3. His affect is flat. HEENT: Mucous membranes are moist. Extraocular muscles are intact. HEART: Regular. LUNGS: Clear. ABDOMEN: Soft and nondistended. SKIN: Without rash. There is no edema. LABORATORY STUDIES: CBC yesterday reveals a white blood cell count of 9.5, hemoglobin 16.3 and platelets are 214. Chemistry panel in the ER reveals a sodium of 141, potassium 4.2, chloride 107, bicarbonate 23, BUN 16, creatinine 0.8, and glucose is 138. LFTs are within normal limits. A PSA on the 17 of March was 5.3 up from 4.0 in December. Urinalysis had 1+ blood, 1-5 WBCs and no bacteria. Blood cultures are pending. Urine culture has less than 1000 colonies and is reported as no growth. Again, on 12/11/2016, there was an urine culture, which grew 9000 colonies of gram negative macrina, which was not identified. Imaging is as above. IMPRESSION: 1. Prostatitis. 2. Antibiotic allergy with likely reaction. I do not feel that any of his current clinical symptoms related to ongoing infection as they have resolved with discontinuation of trimethoprim. He currently is on Zosyn and is tolerating this well. With regards to future antibiotics, this will be difficult as he does not have any positive cultures to direct therapy. This was discussed in great length with the patient and his , who was at the bedside. Recommendations for antibiotics on current would be oral cephalosporins, such as Omnicef or IV antibiotics. I will transition him to IV ertapenem as this is a once daily infusion. If he chooses to attempt a course of IV antibiotics recommend Ertapenem 1 gram every 24 hours that would require a PICC line. His blood cultures are currently pending. Additional oral options would include oral cephalosporins, such as Omnicef to cover for gram negative pathogens. He has had tendon issues in the past with fluoroquinolones and those will be avoided at this time. Certainly, Bactrim should be avoided. He did tolerate doxy with significant response reportedly to this, but had a photosensitivity reaction. This would certainly be another alternative option for oral therapy if he chooses not to move forward with IV antibiotics especially moving into the fall, in winter months, photosensitivity would be less likely a problem at this time. Thank you for this consultation. GIOVANY
--- NOTE | 2017-03-21 14:02 | Progress Note ---
Subjective Date of Service: Mar 21, 2017. Subjective Pt evaluation today including: conversation w/ patient, conversation w/ family , physical exam, chart review, lab review, review of studies, conversation w/ testing consultant, review of inpatient medication list pt feels well today Pt has had months of symptoms consistent with chronic prostatitis and has had cipro intermittently ,and in end felt it was affecting his tendons and doxycline for a month. He reports feeling better the last two weeks of doxy but worse 24 hours after stopping His symptoms have been somewhat nonspecific slightly slower stream,achy,malaise In my office he had a temp of 99.5 and tntc wbc on post massage fluid from the prostate and 5 to 6 wbc in urine Friday Based on these findings and a slightly elevated psa I was concerned he was having worsening recurrent prostatitis with possible resistance to cipro and possibly doxy Act to r/o abscess was ordered and none seen . He was started on Trimethoprim with the understanding he might be allergic as he stated a previous bactrim allergy but felt this would be the best choice from a resistance and prostate tissue penetration POV. Pt had flushing ,nausea and chills and reported to the ER last night. I I spent 30 minutes with pt and his discussing prostatitis and why I am clinically making this diagnosis but cannot normally get culture results unless his bladder is also infected or he he septic and growing something in his blood which fortunately being afebrile w nl wbc he is not We also discussed the elevated psa and how infection could cause a rise and how he could have prostate cancer but that given risks of infection with a biopsy now is not the time to investigate this Because of difficulty with oral antibiotic ID was consulted. I would favor the longer course of Iv antibiotic with oral if they think it could help . If pt recurs he may need to have infected tissue in his prostate resected Problem List Medical Problems: (1) Failure of outpatient treatment Status: Acute Objective Vital Signs Date Time Temp Pulse Resp B/P (MAP) Pulse Ox O2 Delivery O2 Flow Rate FiO2 03/21/17 08:30 Room Air 03/21/17 07:45 37.3 84 20 133/75 (94) 95 Room Air 03/21/17 01:34 37.1 81 14 114/69 (84) 94 Room Air 03/21/17 01:30 37.1 81 14 114/69 94 Room Air 03/21/17 01:30 Room Air 03/21/17 01:20 37.2 83 17 137/76 (96) 93 Room Air 03/21/17 01:08 37.1 80 18 164/93 95 03/20/17 23:59 85 18 191/103 96 Room Air 03/20/17 22:59 87 20 152/78 95 Room Air 03/20/17 22:08 94 Room Air 03/20/17 21:45 95 Room Air 03/20/17 21:27 37.6 106 18 178/83 95 Room Air Laboratory Results Last 24 Hours Test 03/20/17 22:11 03/20/17 22:28 03/20/17 23:00 White Blood Count 9.50 K/uL Red Blood Count 5.58 M/uL Hemoglobin 16.3 g/dL Hematocrit 49.4 % Mean Corpuscular Volume 88.5 fL Mean Corpuscular Hemoglobin 29.2 pg Mean Corpuscular Hemoglobin Concent 33.0 g/dl Platelet Count 214 K/uL Mean Platelet Volume 11.6 fL Neutrophils (%) (Auto) 82.9 % Lymphocytes (%) (Auto) 7.3 % Monocytes (%) (Auto) 7.3 % Eosinophils (%) (Auto) 1.8 % Basophils (%) (Auto) 0.6 % Neutrophils # (Auto) 7.88 K/uL Lymphocytes # (Auto) 0.69 K/uL Monocytes # (Auto) 0.69 K/uL Eosinophils # (Auto) 0.17 K/uL Basophils # (Auto) 0.06 K/uL RDW Standard Deviation 42.4 fL RDW Coefficient of Variation 13.0 % Immature Granulocyte % (Auto) 0.1 % Immature Granulocyte # (Auto) 0.01 K/uL Prothrombin Time 10.1 SECONDS Prothromb Time International Ratio 0.9 Activated Partial Thromboplast Time 28.6 SECONDS Partial Thromboplastin Ratio 1.1 Sodium Level 141 mmol/L Potassium Level 4.2 mmol/L Chloride Level 107 mmol/L Carbon Dioxide Level 23 mmol/L Anion Gap 9.0 mmol/L Blood Urea Nitrogen 16 mg/dl Creatinine 0.89 mg/dl Est Creatinine Clear Calc Drug Dose 97.8 ml/min Estimated GFR () 104.0 Estimated GFR (Non- 89.7 BUN/Creatinine Ratio 17.4 Random Glucose 138 mg/dl Calcium Level 9.0 mg/dl Total Bilirubin 0.3 mg/dl Aspartate Amino Transf (AST/SGOT) 17 U/L Alanine Aminotransferase (ALT/SGPT) 33 U/L Alkaline Phosphatase 61 U/L Total Creatine Kinase 113 U/L Creatine Kinase MB 0.9 ng/ml Creatine Kinase MB Ratio 0.8 Troponin I < 0.015 ng/ml Total Protein 7.2 gm/dl Albumin 3.7 gm/dl Globulin 3.5 gm/dl Albumin/Globulin Ratio 1.1 Procalcitonin 0.06 ng/ml Chemistry Specimen Hemolysis Bedside Lactic Acid Venous 1.70 mmol/L Urine Color YELLOW Urine Appearance CLEAR Urine pH 5.5 Urine Specific De[place] 1.027 Urine Protein NEG Urine Glucose (UA) NEG Urine Ketones NEG Urine Occult Blood 1+ Urine Nitrite NEG Urine Bilirubin NEG Urine Urobilinogen NEG Urine Leukocyte Esterase NEG Urine WBC (Auto) 1-5 /hpf Urine RBC (Auto) 0-4 /hpf Urine Hyaline Casts (Auto) 0 /lpf Urine Epithelial Cells (Auto) 0-5 /lpf Urine Bacteria (Auto) NEG Assessment and Plan Favor IDs plan to transition to daily iV antibiotic and would favor 4 weeks or three weeks after d/c if hhe responds to the med clinically Will follow
[2017-03-21] MEDS: ERTAPENEM IV 1 GM in SODIUM CHLOR 0.9% AD-VAN 50ML 50 ML IV SCH (14:29)
[2017-03-21] MEDS ORDERED: ROSUVASTATIN CALCIUM 10 MG TAB PO SCH (21:00)
[2017-03-21] MEDS ORDERED: ASPIRIN 81 MG ECTAB PO SCH (21:00)
[2017-03-22 02:38] VITALS: TEMP 37
[2017-03-22] MEDS: HEPARIN SOD 5000 UNIT/0.5 ML CARP SQ SCH (05:53)
[2017-03-22 07:37] VITALS: BP 144/79; PULSE 84; TEMP 36.9; O2SAT 94
[2017-03-22] MEDS: OFLOXACIN 0.3% OP SOLN 5 ML BTL OP SCH (08:14)
--- NOTE | 2017-03-22 11:29 | Progress Note ---
Subjective Date of Service: Mar 22, 2017. Subjective Pt evaluation today including: conversation w/ patient, physical exam, chart review, lab review, conversation w/ optimization consultant Pt feels well. Reviewed ID note and spoke with Hospitalist Given pt has failed courses of cipro and doxycycline with persistent symptoms of prostatitis would opt for Iv antibiotics for at least 3 weeks after discharge preferably a total of 4 weeks If pt has clear ongoing active infection after antibiotics would give consideration of a turp Problem List Medical Problems: (1) Failure of outpatient treatment Status: Acute Objective Vital Signs Date Time Temp Pulse Resp B/P (MAP) Pulse Ox O2 Delivery O2 Flow Rate FiO2 03/22/17 08:00 Room Air 03/22/17 07:37 36.9 84 16 144/79 (100) 94 Room Air 03/22/17 02:38 37.0 03/21/17 23:30 Room Air 03/21/17 23:03 37.9 85 16 117/68 (84) 95 Room Air 03/21/17 16:30 95 Room Air 03/21/17 15:29 37.3 74 16 145/85 (105) 95 Room Air Assessment and Plan Favor IDs plan to transition to daily iV antibiotic and would favor 4 weeks or three weeks after d/c if hhe responds to the med clinically Hospitalist to try to arrange PIC line for IV administration daily as outpt
[2017-03-22] MEDS: ERTAPENEM IV 1 GM in SODIUM CHLOR 0.9% AD-VAN 50ML 50 ML IV SCH (13:17)
[2017-03-22 13:31] VITALS: BP 144/79; PULSE 84; TEMP 36.9; O2SAT 94
--- NOTE | 2017-03-22 13:36 | Discharge Instructions ---
Discharge Instructions Date of Service Mar 22, 2017. Admission Reason for Admission: Prostatitis Discharge Discharge Diagnosis / Problem: chronic prostatitis Discharge Goals Goal(s): Improve function, Increase independence Activity Recommendations Activity Limitations: resume your previous activity . Instructions / Follow-Up Instructions / Follow-Up F/U with Urology in 4 weeks Continue with IV infusion of ertapenem at [facility] daily to cpmlete 4 weeks of treatment Current Hospital Diet Patient's current hospital diet: AHA Diet (Heart Healthy) Discharge Diet Recommended Diet: AHA Diet (Heart Healthy) Pending Studies Studies pending at discharge: no Medical Emergencies . Who to Call and When: Medical Emergencies: If at any time you feel your situation is an emergency, please call 911 immediately. . Non-Emergent Contact Non-Emergency issues call your: Primary Care Provider, Urologist Call Non-Emergent contact if: you have a fever, your pain is worsening . Past History Medical & Surgical History: (1) Prostatitis (2) Failure of outpatient treatment . "Provider Documentation" section prepared by Arturo Alejandre. . VTE Core Measure Inpt VTE Proph given/why not?: Unfractionated heparin SQ
--- NOTE | 2017-03-22 13:37 | Discharge Summary ---
Discharge Summary Date of Service Mar 22, 2017. Discharge Summary Admission Date: Mar 21, 2017 at 00:35 Discharge Date: Mar 22, 2017 Discharge Disposition: Home with services Principal Diagnosis: Chronic prostatitis Immunizations: Have You Had Influenza Vaccine: Yes Influenza Vaccine Date: Mar 16, 2010 History of Tetanus Vaccine?: Yes Tetanus Immunization Date: Mar 16, 2010 History of Pneumococcal: Yes Pneumococcal Date: May 24, 2005 History of Hepatitis B Vaccine: Unknown Consultations: Urology Consult History of Present Illness 67 year old male well known to our service. He has been followed by Dr. Frias for his prostatitis. Discussed case with Dr. Frias. He has been treated and failed treatment with courses of doxycycline and Ciprofloxacin. Prostate secretions evaluated by Dr. Frias showed TNTC WBCs indicating infection. CT scan was done to rule out prostate abscess- did not reveal any worrisome findings. He presented to the ER with complaints of fever, chills, and rigors. Pt stated he felt very sick. Stated that he had this reaction to sulfa drug many years ago. He was only on trimethoprim. Not Bactrim as previously stated. Upon admission did note low grade fever, tachycardia, and hypertensive. Pt is now afebrile with VSS. Had urine culture 2 days ago that shows no growth. Blood cultures are pending. Physical Exam: General Appearance: WD/WN, no apparent distress ENT: hearing grossly normal Neck: no JVD Gastrointestinal: Abdomen: normal abdomen Extremities: normal inspection Neurologic/Psychiatric: alert, normal mood/affect, oriented x 3 Skin: normal color, warm/dry, no rash Assessment & Plan Assessment & Plan Prostatitis It is unclear if his current symptoms are due to reaction to trimethoprim. He has failed multiple antibiotic courses for prostatitis. Clinically with symptoms suggests a diagnosis of prostatitis. Prostatic abscess was ruled out on CT. Will consult infectious disease - rule out other source of infection, ? antibiotic reaction and possible alternative course of antibiotic if felt necessary. (Reviewed case with Dr. Lawson) Appreciate their input. Thanks for the consult. Will continue to follow along. Pt seen and case discussed with Chantel Urena . I agree with above plan and assessment <Electronically signed by Chantel BISWAS> <Electronically signed by Tee Frias M.D.> Signed: 03/21/17 1001 Signed: 03/21/17 1101 The status of this report is Signed * If report status is Draft, the document has not been finalized by the responsible provider. MNE: HEMONC Patient: APARNA BATISTA Admit Date: 03/20/17 Med Rec: [id number] Acct ID: [id number] [~ rep ct labl] Page 3 of 3 p: [~ rep prt dt last] [~ rep prt tm last] CONSULTATION REPORT [~ rep ct labl] Page 1 of 1 p: [~ rep prt dt last] [~ rep prt tm last] CONSULTATION REPORT INFECT. DISEASE CONSULTATION [place] Patient: APARNA BATISTA Admit Date: 03/20/17 Med Rec: [id number] Att Phy: Aiden Mujica M.D. Acct ID: [id number] Dulce Phy: Tammy Goldberg M.D. Date: 1950 Fam Phy: Tammy Goldberg M.D. Age: 67 Location: [facility] Sex: M Room/Bed: [facility] MNE: ESCONSIN REPORT #: [id number] CC: Aiden Mujica M.D. Patterson, Jennifer., D.O. Endcc: DICTATED BY: Jennifer. Lawson D.O. *NOTICE TO RECEIVING CONSTITUTION PARTY/AGENCY This information is strictly Confidential and protected under [place] law. [place] law prohibits you from making any further disclosure of this information unless further disclosure is expressly permitted by the written consent of the person to whom it pertains or is authorized by law. A general authorization for the release of medical or other information is not sufficient for this purpose. Hospital accepts no responsibility if the information is made available to any other person, INCLUDING THE PATIENT. DATE OF CONSULTATION: 03/21/2017 REQUESTING PHYSICIAN: Dr. Frias. HISTORY OF PRESENT ILLNESS: This is a 67-year-old gentleman who was admitted to the hospital after he had a reaction to trimethoprim. He does have a history of prostatitis. He states this began some months ago. He initially received a course of Cipro from his primary care physician for 7 days, which he felt had helped; however, he had taken this multiple times with short courses and then developed pain in his ankles, which he felt was due to tendonitis and his Cipro was discontinued. He then followed up with urology and was placed on a prolonged course of doxycycline. He tolerated this well, but states he had significant sensitivity reaction to this. He then was changed to trimethoprim. He does carry a history of SULFA ALLERGY many years ago and he was given trimethoprim only. He took 3 pills of this and he had an episode of violent shaking and tachycardia. He also had subjective low-grade fevers. He does not know if this was due to anxiety or reaction to trimethoprim, but in any event, he did present to the Emergency Room and subsequently was admitted. He was started empirically on Zosyn and given a 1-time dose of daptomycin. He is tolerating these antibiotics well. He did have a T-max yesterday of 37.6, but has otherwise been afebrile. His white blood cell count was normal. A urinalysis was unremarkable. His chest x-ray is unremarkable as well. He does have a history of prostatitis. There is a urine culture dated December 11, which had 9000-gram negative rods and no additional workup was done at that time. His urine culture from this admission is negative. He did have a CAT scan of the pelvis done yesterday, which showed heterogeneous prostate gland with no evidence of abscess. He states he has had an elevated PSA, but has not undergone any prostate biopsy due to the concern for spread of infection. He does not have a history of prostate cancer in his family. He did recently have a prostate massage, which reportedly had significant white blood cells and do not know if a culture was done as an outpatient at that time. Currently, he states he is feeling significantly better. He denies any fevers or chills. He has no shakes. He has no chest pain, cough, shortness of breath, nausea, vomiting or diarrhea. All remaining review of systems is reviewed and unremarkable. PAST MEDICAL HISTORY: Significant for hyperlipidemia and prostatitis. PAST SURGICAL HISTORY: Unremarkable. FAMILY HISTORY: Noncontributory. SOCIAL HISTORY: Negative for tobacco use, alcohol use or drug use. He is . His is present during my examination. 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 ALLERGIES: HE DOES HAVE ALLERGIES TO BACTRIM. CURRENT MEDICATIONS: Include aspirin, Crestor, Zosyn, subQ heparin, hydralazine, Tylenol, Maalox, milk of magnesia, MiraLax, Ambien, and Zofran. PHYSICAL EXAMINATION: VITAL SIGNS: He is afebrile, pulse 84, respiratory rate is 20, blood pressure is 133/75, and oxygen saturation 95% on room air. GENERAL: He is awake, alert and oriented x3. His affect is flat. HEENT: Mucous membranes are moist. Extraocular muscles are intact. HEART: Regular. LUNGS: Clear. ABDOMEN: Soft and nondistended. SKIN: Without rash. There is no edema. LABORATORY STUDIES: CBC yesterday reveals a white blood cell count of 9.5, hemoglobin 16.3 and platelets are 214. Chemistry panel in the ER reveals a sodium of 141, potassium 4.2, chloride 107, bicarbonate 23, BUN 16, creatinine 0.8, and glucose is 138. LFTs are within normal limits. A PSA on the 17 of March was 5.3 up from 4.0 in December. Urinalysis had 1+ blood, 1-5 WBCs and no bacteria. Blood cultures are pending. Urine culture has less than 1000 colonies and is reported as no growth. Again, on 12/11/2016, there was an urine culture, which grew 9000 colonies of gram negative macrina, which was not identified. Imaging is as above. IMPRESSION: 1. Prostatitis. 2. Antibiotic allergy with likely reaction. I do not feel that any of his current clinical symptoms related to ongoing infection as they have resolved with discontinuation of trimethoprim. He currently is on Zosyn and is tolerating this well. With regards to future antibiotics, this will be difficult as he does not have any positive cultures to direct therapy. This was discussed in great length with the patient and his , who was at the bedside. Recommendations for antibiotics on current would be oral cephalosporins, such as Omnicef or IV antibiotics. I will transition him to IV ertapenem as this is a once daily infusion. If he chooses to attempt a course of IV antibiotics recommend Ertapenem 1 gram every 24 hours that would require a PICC line. His blood cultures are currently pending. Additional oral options would include oral cephalosporins, such as Omnicef to cover for gram negative pathogens. He has had tendon issues in the past with fluoroquinolones and those will be avoided at this time. Certainly, Bactrim should be avoided. He did tolerate doxy with significant response reportedly to this, but had a photosensitivity reaction. This would certainly be another alternative option for oral therapy if he chooses not to move forward with IV antibiotics especially moving into the fall, in winter months, photosensitivity would be less likely a problem at this time. Thank you for this consultation. [id number] <Electronically signed by Alejandrina Lawson D.O.> S: 03/21/17 1516 ES Alejandrina Lawson D.O. The status of this report is Signed. Draft = Not yet reviewed or approved by Medical Physician. Signed = Reviewed and approved by Medical Physician. Medication Reconciliation Continued Medications: Aspirin (Aspirin Ec) 81 Mg Tab 81 MG PO QPM Rosuvastatin Calcium (Crestor) 5 Mg Tab 5 MG PO HS, TAB Discharge Exam Review of Systems: Constitutional: No fever, No chills Eyes: No eye pain Respiratory: No cough, No sputum, No wheezing Cardiovascular: No chest pain, No orthopnea Abdomen: No pain, No nausea Genitourinary - Male: No dysuria, No urinary frequency, No urinary urgency, No penile discharge, No impotence Psychiatric: No anxiety, No insomnia Hematologic / Lymphatic: No clotting problems, No swollen lymph nodes, No night sweats Integumentary: No rash, No itch Physical Exam: General Appearance: WD/WN, no apparent distress Neck: supple, no adenopathy, thyroid normal Respiratory/Chest: chest non-tender, lungs clear, normal breath sounds, no respiratory distress Cardiovascular: regular rate, rhythm, no edema, no gallop Abdomen / GI: normal bowel sounds, non tender, soft, no pulsatile mass Extremities: normal inspection, no calf tenderness Skin: normal color, warm/dry Hospital Course History of Present Illness Source: patient 67 y/o M Hx HPL, recurrent prostatitis. Pt had been treated with a 3 month course of Doxy without complete resolution and was prescribed Bactrim 3 days prior. He had taken approximately 3 doses. This evening he developed rigors, fever and tachycardia in addition to nausea and vomiting. He tried to ride this out with a hot shower but was shaking violently afterward. He also claims that during this episode his HR read as 145 on his Iwatch. On arrival to the hospital he exhibited a low-grade fever. The pt initially thought that his symptoms were due to a reaction to Bactrim rather than his chronic infection. He describes a similar reaction when receiving Bactrim several years ago. The pt had an abdominal CT earlier in the day and received contrast. The results were unremarkable and he denies any immediate reactions to the contrast. It is noted that his blood pressure is markedly elevated at the time of admission - this despite being afebrile and seemingly pain-free. He denies a history of HTN. During the course of his hospital stay, ID and Urology were consulted. Patient was deemed that he would require IV ertapenem for custodial basis. Patient will be discharged at home with a PICC line and set up for daily infusions for 3-4 weeks. Total Time Spent: Greater than 30 minutes This includes examination of the patient, discharge planning, medication reconciliation, and communication with other providers. Discharge Instructions Please refer to the electronic Patient Visit Report (Discharge Instructions) for additional information. Follow-Up Urology in 2-4 weeks
[2017-03-28] MEDS ORDERED: ROSU5TAB PO (14:59)
[2017-04-12] MEDS ORDERED: INSTAFLEX PO (07:39)
== END 2017-03-22 14:16 | disposition home or self-care (01) | DRG 728 ==
LOC: C.EDB 21:20 → C.MSW 03-21 00:35 → ENRESERV 03-21 00:57
PROVIDERS: ADMIT Internal Medicine; ATTEND Internal Medicine
DX: N41.1 Chronic prostatitis (principal); R50.2 Drug induced fever; T37.8X5A Adverse effect of other specified systemic anti-infectives and antiparasitics, initial encounter; E78.5 Hyperlipidemia, unspecified; Z88.2 Allergy status to sulfonamides; I10 Essential (primary) hypertension; Y92.019 Unspecified place in single-family (private) house as the place of occurrence of the external cause; N41.0 Acute prostatitis; K57.30 Diverticulosis of large intestine without perforation or abscess without bleeding; K40.90 Unilateral inguinal hernia, without obstruction or gangrene, not specified as recurrent

== ENCOUNTER → 2017-03-20 | Outpatient (CLI) | payer OTHER ==
[~2017-03-20] MED LIST changes: +OPTIRAY 320 IV PRN
--- NOTE | 2017-03-20 09:01 | DIAGNOSTIC IMAGING REPORT ---
CT OF THE PELVIS WITH CONTRAST CLINICAL HISTORY: Prostatitis. Evaluate for prostate abscess. COMPARISON STUDY: No previous studies for comparison. TECHNIQUE: Axial images of the pelvis were obtained following intravenous injection of 93 cc of Optiray 320 IV. Sagittal and coronal reconstructions were viewed. FINDINGS: The prostate is moderately enlarged. The prostate is heterogeneous. However, there is no rim-enhancing prostatic fluid collection to suggest an abscess. There is left colon diverticulosis without evidence for acute diverticulitis within visualized portions of the colon. A 2.4 cm cyst within the lower pole of the right kidney is incidentally noted. There is a fat-containing right inguinal hernia. There are no suspicious osseous lesions. There is no pelvic lymphadenopathy. IMPRESSION: 1. Moderately enlarged heterogeneous prostate gland with no evidence for prostate abscess. 2. Colonic diverticulosis. 3. Fat-containing right inguinal hernia. Electronically signed by: Jordi Goldberg M.D. 03/20/2017 9:00 AM Dictated Date/Time: 03/20/2017 8:48 AM
== END | disposition home or self-care (01) ==
LOC: C.CTS 08:18
PROVIDERS: ATTEND Urology
DX: N41.0 Acute prostatitis (principal); N41.1 Chronic prostatitis; K57.30 Diverticulosis of large intestine without perforation or abscess without bleeding; K40.90 Unilateral inguinal hernia, without obstruction or gangrene, not specified as recurrent

== ENCOUNTER 2017-03-28 19:14 | Emergency (ER) | payer OTHER ==
[~2017-03-28] VITALS: Ht 175.3 cm; Wt 101.2 kg
[~2017-03-28 19:14] MED LIST changes: -DIFL0.0519; +ROSU5TAB PO
[2017-03-28 19:16] VITALS: TEMP 36.9; Ht 175.3 cm; Wt 101.2 kg
[2017-03-28] MEDS ORDERED: ERTA1INJ IV (19:37)
[2017-03-28] MEDS ORDERED: ZOLP10TA PO (19:38)
[2017-03-28] MEDS ORDERED: CHOL100027 PO (19:38)
[2017-03-28] MEDS ORDERED: SODIUM CHLORIDE 0.9% 1000ML 1,000 ML IV ONE (19:51)
[2017-03-28] MEDS ORDERED: SODIUM CHLORIDE 0.9% 1000ML 1,000 ML IV STA (19:51)
[2017-03-28 20:27] LABS: ISTAT CREATININE 0.9 mg/dl (0.6-1.3); ISTAT HEMOGLOBIN 15.6 g/dl (14.0-18.0); ISTAT IONIZED CALCIUM 1.17 mmol/l (1.12-1.32)
[2017-03-28 20:28] LABS: BASO % 0.5 %; BASO ABS # 0.07 K/uL (0-0.2); COMPLETE YES; EOS % 1.3 %; HEMATOCRIT 45.1 % (42-52); IG% 0.3 %; LYMPH % 26.1 %; LYMPH ABS # 3.56 K/uL (1.2-3.4); MEAN CELL VOLUME 88.1 fL (80-100); MEAN CORPUSCULAR HEMOGLOBIN 30.7 pg (25-34); MEAN CORPUSCULAR HGB CONC 34.8 g/dl (32-36); MEAN PLATELET VOLUME 10.4 fL (7.4-10.4); NEUT % 65.8 %; PLATELET COUNT 272 K/uL (130-400); RED BLOOD COUNT 5.12 M/uL (4.7-6.1); WHITE BLOOD COUNT 13.64 K/uL (4.8-10.8)
[2017-03-28 20:39] LABS: URINE APPEARANCE CLEAR (CLEAR); URINE BILIRUBIN NEG (NEG); URINE COLOR YELLOW; URINE EPITHELIAL CELL AUTO 0-5 /lpf (0-5); URINE NITRITE NEG (NEG); URINE SPECIFIC GRAVITY 1.033 (1.000-1.030); UROBILINOGEN NEG (NEG)
[2017-03-28 20:40] LABS: MANUAL MICROSCOPIC REQUIRED? NO; REVIEW REQ? NO
[2017-03-28] MEDS ORDERED: OPTIRAY 320 IV PRN (20:45)
[2017-03-28 20:53] LABS: ALT/SGPT 38 U/L (12-78); BLOOD UREA NITROGEN 18 mg/dl (7-18); BUN/CREATININE RATIO 21.5 (10-20); CALCIUM 9.2 mg/dl (8.5-10.1); CARBON DIOXIDE 28 mmol/L (21-32); CHLORIDE 106 mmol/L (98-107); CREATININE 0.82 mg/dl (0.60-1.40); GLUCOSE 75 mg/dl (70-99); POTASSIUM 3.9 mmol/L (3.5-5.1); SODIUM 140 mmol/L (136-145)
[2017-03-28 20:56] LABS: ALKALINE PHOSPHATASE 65 U/L (45-117); AST/SGOT 17 U/L (15-37)
--- NOTE | 2017-03-28 21:10 | DIAGNOSTIC IMAGING REPORT ---
ABD/PELVIS IV CONTRAST ONLY CT DOSE: 713.24 mGy.cm HISTORY: Pain eval for diverticulitis, abcess TECHNIQUE: Multiaxial CT images of the abdomen and pelvis were performed following the use of intravenous contrast. A dose lowering technique was utilized adhering to the principles of ALARA. COMPARISON STUDY: 03/20/2017 FINDINGS: Mild chronic interstitial prominence both lung bases. Liver spleen and pancreas are uniform. Gallbladder is negative for distention. Several left renal parapelvic cysts as well as cortical cysts bilaterally unchanged from the prior study. Abdominal bowel pattern is nonobstructive. There are findings of chronic sigmoid diverticulosis. There are findings of mild acute descending colonic diverticulitis. Mild pericolonic infiltrative changes present. No evidence for abscess or collection. Improved appearance to the prostate with a gland diminished in size and improved in terms of density characteristics. IMPRESSION: 1. Mild acute descending colonic diverticulitis. 2. Mild pericolonic infiltrative change. 3. No evidence for abscess collection or obstruction. 4. Chronic sigmoid diverticulosis. 5. Improved appearance to the prostate. The above report was generated using voice recognition software. It may contain grammatical, syntax or spelling errors. Electronically signed by: Frank Nicholas M.D. 03/28/2017 9:09 PM Dictated Date/Time: 03/28/2017 9:05 PM
--- NOTE | 2017-03-28 21:16 | EMERGENCY ROOM VISIT NOTE ---
History Report prepared by Halle: Diane Pate Under the Supervision of: Dr. Barney Ceballos M.D. First contact with patient: 19:37 Chief Complaint: ABDOMINAL PAIN Stated Complaint: INTESTINAL PAIN,POSSIBLE TRAPPED GAS History of Present Illness The patient is a 67 year old male who presents to the Emergency Room with complaints of persistent LLQ abdominal pain starting this morning. He describes the pain as severe. He has never had this pain before. The pain worsens with movement. He was riding in his truck for work today and every time he hit a bump the pain would worsen. He feels SOB when the pain worsens. He had a normal BM this morning. He denies any fever, nausea, vomiting, groin pain, constipation , diarrhea, hematochezia, urinary symptoms, chest pain, numbness, or weakness. He denies any fall, trauma, or heavy lifting. He is keeping up with his fluids. He was recently hospitalized for a reaction to Bactrim which he was taking for his prostatitis. He currently has a PICC line for receiving antibiotics every morning. He is feeling better besides the abdominal pain. He is otherwise healthy. Source of History: patient Onset: this morning Position: abdomen (LLQ) Symptom Intensity: severe Quality: other (pain) Timing: other (persistent) Modifying Factors (Worsening): movement Associated Symptoms: No fevers, No chest pain, No nausea, No vomiting, No hematochezia, No diarrhea, No urinary symptoms, No weakness, No numbness Note: Pt denies groin pain, constipation. Review of Systems See HPI for pertinent positives & negatives. A total of 10 systems reviewed and were otherwise negative. Past Medical & Surgical Medical Problems: (1) Prostatitis Old medical records were reviewed. Nurse's notes were reviewed and I agree with. Family History Diabetes mellitus FH: heart disease Social History Smoking Status: Never Smoker Drug Use: none Marital Status: Housing Status: lives with family Occupation Status: employed Current/Historical Medications Scheduled Aspirin (Aspirin Ec), 81 MG PO QPM Cholecalciferol (Vitamin D 1000 Unit), 1,000 INTER.UNIT PO DAILY Ertapenem Sodium (Invanz), 1 DOSE IV DAILY Rosuvastatin Calcium (Crestor), 5 MG PO HS Scheduled PRN Zolpidem Tartrate (Ambien), 10 MG PO HS PRN for Sleep Allergies Coded Allergies: Sulfa Drugs (Verified Allergy, Unknown, GI UPSET, 03/28/17) Trimethoprim (Unverified Allergy, Unknown, SHAKES,RAPID HEART RATE, VOMITING, 03/28/17) Ciprofloxacin (Verified Adverse Reaction, Mild, general malaise, pain in wrists and ankles, 03/28/17) Physical Exam Vital Signs Date Time Temp Pulse Resp B/P (MAP) Pulse Ox O2 Delivery O2 Flow Rate FiO2 03/28/17 22:49 77 18 122/73 96 Room Air 03/28/17 21:17 78 20 113/64 93 Room Air 03/28/17 19:16 36.9 84 18 169/90 93 Room Air Physical Exam General: Non ill appearing middle aged male in no acute distress. Well developed well nourished, breathing comfortably on room air. Normal speech HEENT: Normal cephalic atraumatic. Pupils are equal round and reactive to light. Extraocular movements are intact. Oropharynx is pink with moist mucous membranes. No swelling of the mouth lips or tongue. Neck: Supple with a midline trachea. No meningeal signs or stiffness, no JVD or bruits. No Stridor. Chest: Clear to auscultation bilaterally. No wheezes or rhonchi. No increased work of breathing. Heart: regular rate and rhythm. Abdomen: Soft, moderately tender in the left lower abdomen, no masses, nondistended without rebound guarding or rigidity. Extremities: No cyanosis clubbing or edema. No calf tenderness or assymetry. PICC line in right arm. Spine/Back. Non tender to palpation. No CVA tenderness Skin: Good turgor without rashes. Neurologic exam: Cranial nerves two through 12 are intact. Motor and sensation are intact and symmetrical throughout. Medical Decision & Procedures ER Provider Diagnostic Interpretation: Radiology results as stated below per my review and radiologist interpretation: ABD/PELVIS IV CONTRAST ONLY CT DOSE: 713.24 mGy.cm HISTORY: Pain eval for diverticulitis, abcess TECHNIQUE: Multiaxial CT images of the abdomen and pelvis were performed following the use of intravenous contrast. A dose lowering technique was utilized adhering to the principles of ALARA. COMPARISON STUDY: 03/20/2017 FINDINGS: Mild chronic interstitial prominence both lung bases. Liver spleen and pancreas are uniform. Gallbladder is negative for distention. Several left renal parapelvic cysts as well as cortical cysts bilaterally unchanged from the prior study. Abdominal bowel pattern is nonobstructive. There are findings of chronic sigmoid diverticulosis. There are findings of mild acute descending colonic diverticulitis. Mild pericolonic infiltrative changes present. No evidence for abscess or collection. Improved appearance to the prostate with a gland diminished in size and improved in terms of density characteristics. IMPRESSION: 1. Mild acute descending colonic diverticulitis. 2. Mild pericolonic infiltrative change. 3. No evidence for abscess collection or obstruction. 4. Chronic sigmoid diverticulosis. 5. Improved appearance to the prostate. The above report was generated using voice recognition software. It may contain grammatical, syntax or spelling errors. Electronically signed by: Frank Nicholas M.D. 03/28/2017 9:09 PM Dictated Date/Time: 03/28/2017 9:05 PM Laboratory Results 03/28/17 20:10 Red Blood Count 5.12, Mean Corpuscular Volume 88.1, Mean Corpuscular Hemoglobin 30.7, Mean Corpuscular Hemoglobin Concent 34.8, Mean Platelet Volume 10.4, Neutrophils (%) (Auto) 65.8, Lymphocytes (%) (Auto) 26.1, Monocytes (%) (Auto) 6.0, Eosinophils (%) (Auto) 1.3, Basophils (%) (Auto) 0.5, Neutrophils # (Auto) 8.97, Lymphocytes # (Auto) 3.56, Monocytes # (Auto) 0.82, Eosinophils # (Auto) 0.18, Basophils # (Auto) 0.07 03/28/17 20:10 Test 03/28/17 20:07 03/28/17 20:10 03/28/17 20:11 03/28/17 20:19 Urine Color YELLOW Urine Appearance CLEAR (CLEAR) Urine pH 5.0 (4.5-7.5) Urine Specific [place] 1.033 (1.000-1.030) Urine Protein NEG (NEG) Urine Glucose (UA) NEG (NEG) Urine Ketones NEG (NEG) Urine Occult Blood 1+ (NEG) Urine Nitrite NEG (NEG) Urine Bilirubin NEG (NEG) Urine Urobilinogen NEG (NEG) Urine Leukocyte Esterase NEG (NEG) Urine WBC (Auto) 1-5 /hpf (0-5) Urine RBC (Auto) 0-4 /hpf (0-4) Urine Hyaline Casts (Auto) 1-5 /lpf (0-5) Urine Epithelial Cells (Auto) 0-5 /lpf (0-5) Urine Bacteria (Auto) NEG (NEG) White Blood Count 13.64 K/uL (4.8-10.8) Red Blood Count 5.12 M/uL (4.7-6.1) Hemoglobin 15.7 g/dL (14.0-18.0) Hematocrit 45.1 % (42-52) Mean Corpuscular Volume 88.1 fL (80-100) Mean Corpuscular Hemoglobin 30.7 pg (25-34) Mean Corpuscular Hemoglobin Concent 34.8 g/dl (32-36) Platelet Count 272 K/uL (130-400) Mean Platelet Volume 10.4 fL (7.4-10.4) Neutrophils (%) (Auto) 65.8 % Lymphocytes (%) (Auto) 26.1 % Monocytes (%) (Auto) 6.0 % Eosinophils (%) (Auto) 1.3 % Basophils (%) (Auto) 0.5 % Neutrophils # (Auto) 8.97 K/uL (1.4-6.5) Lymphocytes # (Auto) 3.56 K/uL (1.2-3.4) Monocytes # (Auto) 0.82 K/uL (0.11-0.59) Eosinophils # (Auto) 0.18 K/uL (0-0.5) Basophils # (Auto) 0.07 K/uL (0-0.2) RDW Standard Deviation 41.3 fL (36.4-46.3) RDW Coefficient of Variation 12.8 % (11.5-14.5) Immature Granulocyte % (Auto) 0.3 % Immature Granulocyte # (Auto) 0.04 K/uL (0.00-0.02) Est Creatinine Clear Calc Drug Dose 105.3 ml/min Estimated GFR () 107.6 Estimated GFR (Non- 92.8 BUN/Creatinine Ratio 21.5 (10-20) Calcium Level 9.2 mg/dl (8.5-10.1) Total Bilirubin 0.3 mg/dl (0.2-1) Direct Bilirubin < 0.1 mg/dl (0-0.2) Aspartate Amino Transf (AST/SGOT) 17 U/L (15-37) Alanine Aminotransferase (ALT/SGPT) 38 U/L (12-78) Alkaline Phosphatase 65 U/L (45-117) Total Protein 7.3 gm/dl (6.4-8.2) Albumin 3.5 gm/dl (3.4-5.0) Lipase 129 U/L (73-393) Bedside Hemoglobin 15.6 g/dl (14.0-18.0) Bedside Hematocrit 46 % (42-52) Bedside Sodium 140 mEq/L (135-144) Bedside Potassium 3.9 mEq/L (3.3-5.0) Bedside Chloride 104 mEq/L (101-112) Bedside Total CO2 27 mEq/l (24-31) Anion Gap 14.0 mmol/L (16-25) Bedside Blood Urea Nitrogen 19 mg/dl (7-18) Bedside Creatinine 0.9 mg/dl (0.6-1.3) Bedside Glucose (other) 80 mg/dl (70-99) Bedside Ionized Calcium (Carl) 1.17 mmol/l (1.12-1.32) Bedside Lactic Acid Venous 0.65 mmol/L (0.90-1.70) Laboratory studies as stated above per my review. Medications Administered Medications (Trade) Dose Ordered Sig/Mary Lou Route Start Time Stop Time Status Last Admin Dose Admin Sodium Chloride 1,000 ml @ 999 mls/hr Q1H1M STAT IV 03/28/17 19:51 03/28/17 20:51 DC 03/28/17 20:10 999 MLS/HR Sodium Chloride 1,000 ml @ 150 mls/hr Q6H40M ONCE IV 03/28/17 19:51 03/28/17 23:55 DC 03/28/17 20:43 150 MLS/HR Ketorolac Tromethamine (Toradol Inj) 30 mg NOW STAT IV 03/28/17 22:50 03/28/17 22:51 DC 03/28/17 22:56 30 MG Oxycodone HCl (Roxicodone Immediate Rel 5MG Home Pack) 1 homepack UD ONCE PO 03/28/17 23:00 03/28/17 23:01 DC 03/28/17 22:57 1 HOMEPACK ED Course 193: Past medical records reviewed. The patient was evaluated in room B10, and a complete history and physical examination were performed. 1951: NSS 1000 ml @ 150 mls/hr IV, NSS 1000 ml @ 999 mls/hr IV. 2031: I reevaluated the patient. He is feeling better. He feels like his stomach is gurgling more. 2122: Upon reevaluation, the patient is doing well. I discussed the results and treatment plan with the patient. He verbalized agreement of the treatment plan. The patient will be evaluated for further management. 2129: I discussed the patient's case with Dr. Almonte, [facility] hospitalist. The patient will be evaluated for further management. 2248: I spoke with Dr. Lynn. He recommends the patient be discharged home. 0: Toradol Inj 30 mg IV. 2253: Upon reevaluation, the patient is resting comfortably. I discussed the results and treatment plan with him. He verbalized agreement of the treatment plan. The patient was discharged home. 2300: Oxycodone HCl 1 homepack PO. Medical Decision Differentials include, but are not limited to; diverticulitis, prostatitis, colitis, infection, inflammation, electrolyte or metabolic abnormality. This patient comes in as described above. He's been treated for prostatitis with a prolonged course of antibiotics. He is currently on Invanz through PICC line in his right arm. He started having severe left lower abdominal pain today and this is a new complaint. He has had no fever or chills since he left the hospital 6 days ago. He's had no nausea or vomiting. He is palpably tender on exam. Blood work was obtained his white count is elevated at 13. He has no acute electrolyte or metabolic abnormalities. I did do a CAT scan I reviewed his old records and he does have diverticulosis so I did a CAT scan today as well. He does have mild diverticulitis. I did consult Dr. Lynn to see him in the ER for possible admission. Dr. Lynn talked to the patient and his family and they want to go home. They're to return here tomorrow for IV antibiotics as previously scheduled with IV ertapenem which should cover diverticulitis as well. There are to use a low residue/liquid diet. He was given IV Toradol as well as a home pack for OxyIR 5 mg one or 2 pills every 4-6 hours as needed . he was encouraged to return if :fever, increasing pain, worsening ofsymptoms, any problems concerns. He was happy with the plan and discharged to home. Medication Reconcilliation Current Medication List: was personally reviewed by me Blood Pressure Screening Patient's blood pressure: Normal blood pressure Blood pressure disposition: Did not require urgent referral Consults Time Called: 2124 Consulting Physician: Dr. Almonte, [facility] hospitalist Returned Call: 2129 Discussed the patient's case. The patient will be evaluated for further management. Impression Primary Impression: Diverticulitis Additional Impressions: LLQ abdominal pain Prostatitis Scribe Attestation The scribe's documentation has been prepared under my direction and personally reviewed by me in its entirety. I confirm that the note above accurately reflects all work, treatment, procedures, and medical decision making performed by me. Departure Information Dispostion Home / Self-Care Referrals Jennifer. Lawson D.O. (PCP) Forms HOME CARE DOCUMENTATION FORM, IMPORTANT VISIT INFORMATION Patient Instructions My [facility] Additional Instructions Rest. Mild low residue diet Drink plenty of fluids. Return if: Increasing pain, worsening of symptoms, fever or chills, any new problems or concerns Return tomorrow for your ertapenem For pain may use OxyIR 5 mg, one or 2 pills every 4-6 hours as needed OxyIR may make you drowsy -do not take before drinking, driving, working Follow-up with your doctor on Friday for recheck Problem Qualifiers
[2017-03-28 22:49] VITALS: BP 122/73; PULSE 77; O2SAT 96
[2017-03-28] MEDS ORDERED: KETOROLAC TROMETHAMINE 30 MG/ML VIAL IV STA (22:50)
--- NOTE | 2017-03-28 22:56 | Medical Consult ---
Consultation Date of Consultation: Mar 28, 2017. Attending Physician: Reason for Consultation: Left lower quadrant pain, CT suggest acute diverticulitis, ertapenem IV for prostatitis History of Present Illness The patient is a 67-year-old male who was admitted to [facility] from March 21 for prostatitis, for which he is presently on ertapenem IV having completed week 1 of 4. 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 Upon discussion with the patient and is , they've been eating significant amounts of corn this time of year, and they have an Apple tree in their backyard, and therefore he has been eating several apples daily. He's been working more hours lately, and has not been drinking as much liquids as usual. Upon reflection, he feels that he may have been having a simmering left lower quadrant discomfort for a number of months. Past Medical/Surgical History Medical Problems: (1) Diverticulitis Status: Acute (2) Failure of outpatient treatment Status: Acute (3) LLQ abdominal pain Status: Acute Family History Diabetes mellitus FH: heart disease Social History Smoking Status: Never Smoker Smokeless Tobacco Use: No Alcohol Use: none Drug Use: none Marital Status: Housing Status: lives with family Occupation Status: employed Allergies Coded Allergies: Sulfa Drugs (Verified Allergy, Unknown, GI UPSET, 03/28/17) Trimethoprim (Unverified Allergy, Unknown, SHAKES,RAPID HEART RATE, VOMITING, 03/28/17) Ciprofloxacin (Verified Adverse Reaction, Mild, general malaise, pain in wrists and ankles, 03/28/17) Current Inpatient Medications Current Inpatient Medications Medications (Trade) Dose Ordered Sig/Mary Lou Route Start Time Stop Time Status Last Admin Dose Admin Sodium Chloride 1,000 ml @ 150 mls/hr Q6H40M ONCE IV 03/28/17 19:51 03/29/17 02:30 03/28/17 20:43 150 MLS/HR Ioversol (Optiray 320) 100 ml UD PRN IV 03/28/17 20:45 04/01/17 20:44 Oxycodone HCl (Roxicodone Immediate Rel 5MG Home Pack) 1 homepack UD ONCE PO 03/28/17 23:00 03/28/17 23:01 Review of Systems The patient denies chest pain, palpitations, shortness of breath, cough, lower extremity swelling, vision change, hearing change, sore throat, fevers, chills, sweats, weight change, fatigue, nausea, vomiting, blood in urine or stool, dysuria, urinary frequency or urgency, lightheadedness, dizziness, headache, memory loss, rash, abnormal bruising or bleeding, imbalance, focal or generalized weakness, numbness or tingling in arms or legs, generalized arthralgias or myalgias, back or neck pain, night sweats, or allergy symptoms. The review of systems is otherwise negative other than for that already noted above, and at least 10 systems have been reviewed. Physical Exam Date Time Temp Pulse Resp B/P (MAP) Pulse Ox O2 Delivery O2 Flow Rate FiO2 03/28/17 22:49 77 18 122/73 96 Room Air 03/28/17 21:17 78 20 113/64 93 Room Air 03/28/17 19:16 36.9 84 18 169/90 93 Room Air The patient is awake, well-developed and adequately nourished, alert and oriented 3, normocephalic and atraumatic, lying in bed and in no acute distress. HEENT--PERRL, EOMI, mucous membranes and oropharynx normal. Neck--supple, no JVD or bruits, thyroid normal, trachea midline, no adenopathy. Heart--normal S1 and S2, no extra beats, no murmurs, rubs or gallops. Lungs--clear bilaterally with good air movement, no respiratory distress, no accessory muscle use. Abdomen--normal bowel sounds and soft, mildly tender left lower quadrant, Nondistended. no hernias or masses, no organomegaly. Extremities--no cyanosis, clubbing or edema. There are good distal pulses b/l. Dermatologic--normal skin turgor, normal color, warm and dry, no abnormal lymph nodes, no rash. Neurologic--cranial nerves II through XII grossly intact. Rheumatologic--normal range of motion, nontender, muscles and joints. Psychiatric--normal affect. Laboratory Results Last 24 Hours Test 03/28/17 20:07 03/28/17 20:10 03/28/17 20:11 03/28/17 20:19 Urine Color YELLOW Urine Appearance CLEAR Urine pH 5.0 Urine Specific [place] 1.033 Urine Protein NEG Urine Glucose (UA) NEG Urine Ketones NEG Urine Occult Blood 1+ Urine Nitrite NEG Urine Bilirubin NEG Urine Urobilinogen NEG Urine Leukocyte Esterase NEG Urine WBC (Auto) 1-5 /hpf Urine RBC (Auto) 0-4 /hpf Urine Hyaline Casts (Auto) 1-5 /lpf Urine Epithelial Cells (Auto) 0-5 /lpf Urine Bacteria (Auto) NEG White Blood Count 13.64 K/uL Red Blood Count 5.12 M/uL Hemoglobin 15.7 g/dL Hematocrit 45.1 % Mean Corpuscular Volume 88.1 fL Mean Corpuscular Hemoglobin 30.7 pg Mean Corpuscular Hemoglobin Concent 34.8 g/dl Platelet Count 272 K/uL Mean Platelet Volume 10.4 fL Neutrophils (%) (Auto) 65.8 % Lymphocytes (%) (Auto) 26.1 % Monocytes (%) (Auto) 6.0 % Eosinophils (%) (Auto) 1.3 % Basophils (%) (Auto) 0.5 % Neutrophils # (Auto) 8.97 K/uL Lymphocytes # (Auto) 3.56 K/uL Monocytes # (Auto) 0.82 K/uL Eosinophils # (Auto) 0.18 K/uL Basophils # (Auto) 0.07 K/uL RDW Standard Deviation 41.3 fL RDW Coefficient of Variation 12.8 % Immature Granulocyte % (Auto) 0.3 % Immature Granulocyte # (Auto) 0.04 K/uL Sodium Level 140 mmol/L Potassium Level 3.9 mmol/L Chloride Level 106 mmol/L Carbon Dioxide Level 28 mmol/L Anion Gap 6.0 mmol/L 14.0 mmol/L Blood Urea Nitrogen 18 mg/dl Creatinine 0.82 mg/dl Est Creatinine Clear Calc Drug Dose 105.3 ml/min Estimated GFR () 107.6 Estimated GFR (Non- 92.8 BUN/Creatinine Ratio 21.5 Random Glucose 75 mg/dl Calcium Level 9.2 mg/dl Total Bilirubin 0.3 mg/dl Direct Bilirubin < 0.1 mg/dl Aspartate Amino Transf (AST/SGOT) 17 U/L Alanine Aminotransferase (ALT/SGPT) 38 U/L Alkaline Phosphatase 65 U/L Total Protein 7.3 gm/dl Albumin 3.5 gm/dl Lipase 129 U/L Bedside Hemoglobin 15.6 g/dl Bedside Hematocrit 46 % Bedside Sodium 140 mEq/L Bedside Potassium 3.9 mEq/L Bedside Chloride 104 mEq/L Bedside Total CO2 27 mEq/l Bedside Blood Urea Nitrogen 19 mg/dl Bedside Creatinine 0.9 mg/dl Bedside Glucose (other) 80 mg/dl Bedside Ionized Calcium (Carl) 1.17 mmol/l Bedside Lactic Acid Venous 0.65 mmol/L Assessment & Plan Mild acute diverticulitis/likely acute on chronic diverticulitis/IV ertapenem completed week 1 of 4 for prostatitis-- Suspect he has had a simmering case of diverticulitis which more acutely became apparent with his dietary change of significantly higher fiber and less water intake. His prostatitis likely occurred secondary to the diverticulitis. I discussed the dietary changes that he would need to make. In other words, change it to low residue diet for now, increasing his fluid intake dramatically , increasing his probiotics even more than he is now. And then following up with his outpatient physician some time next week. He comes in to the medical treatment unit every morning for ertapenem IV, and can report his progress at that time. He prefers to go home, and I think it's reasonable to do so with the above dietary changes. In addition, the ertapenem IV for treatment of both infectious causes of diverticulitis and prostatitis.
[2017-03-28] MEDS ORDERED: OXYCODONE IR HOME PACK PO ONE (23:00)
[2017-03-28] MEDS ORDERED: ASPI81TA28 PO (23:13)
[2017-04-12] MEDS ORDERED: INSTAFLEX PO (07:39)
== END 2017-03-28 23:05 | disposition home or self-care (01) ==
LOC: C.EDB 19:15
DX: K57.32 Diverticulitis of large intestine without perforation or abscess without bleeding (principal); R10.32 Left lower quadrant pain; N41.9 Inflammatory disease of prostate, unspecified; R06.02 Shortness of breath; Z79.82 Long term (current) use of aspirin; Z79.899 Other long term (current) drug therapy; Z95.828 Presence of other vascular implants and grafts; Z82.49 Family history of ischemic heart disease and other diseases of the circulatory system; Z83.3 Family history of diabetes mellitus